=== PATIENT | female | born 1940 | race African-American/Black ===

== ENCOUNTER 2020-06-11 10:37 | Inpatient (IN) | payer OTHER, MEDICARE ==
--- NOTE | 2020-06-11 10:46 | Emergency Department Report ---
Blank Doc - Documentation Documentation: 79- year-old female that presents with abdominal pain with n/v and body aches. This initial assessment/diagnostic orders/clinical plan/treatment(s) is/are subject to change based on patient's health status, clinical progression and re- assessment by fellow clinical providers in the ED. Further treatment and workup at subsequent clinical providers discretion. Patient/guardians urged not to elope from the ED as their condition may be serious if not clinically assessed and managed. Initial orders include: 1- Patient sent to MAIN ED for further evaluation and treatment 2- labs 3- UA
--- NOTE | 2020-06-11 11:34 | XRay Report ---
ABDOMINAL SERIES WITH CHEST X-RAY HISTORY: Nausea and vomiting COMPARISON: None. IMPRESSION: Single view of the chest is within normal limits. Supine and upright views the abdomen de monstrate no evidence for dilated bowel, fluid levels or free air. No pathologic calcifications. The organ shadows are unremarkable. Mild degenerative changes are noted in the lumbar spine. Signer Name: Norman Olivia Jr, MD Signed: 06/11/2020 11:30 AM Workstation Name: [id number]
[2020-06-11 12:04] LABS: Hematocrit 40.8 % (30.3-42.9); Hemoglobin 13.5 gm/dl (10.1-14.3); Mean Corpuscular HGB Conc 33 % (30-34); Mean Corpuscular Volume 90 fl (79-97); Red Blood Count 4.56 M/mm3 (3.65-5.03); Red Cell Distribution Width 13.9 % (13.2-15.2)
[2020-06-11 12:05] LABS: Platelet Count 64 K/mm3 (140-440)
[2020-06-11 12:07] LABS: Albumin 3.2 g/dL (3.9-5); Calcium 9.1 mg/dL (8.4-10.2)
[2020-06-11 12:27] LABS: INR 1.11 (0.87-1.13)
[2020-06-11 12:27] LABS: Bacteria,Urine 1+ /HPF (Negative); Bilirubin,Urine NEG (Negative); Blood,Urine MOD (Negative); Color,Urine Yellow (Yellow); Urobilinogen,Urine < 2.0 mg/dL (<2.0)
[2020-06-11 12:29] LABS: WBC,Urine > 182.0 /HPF (0.0-6.0)
[2020-06-11] MEDS ORDERED: fentaNYL 100 MCG/2 ML INJ IV ONE ×2 (12:40→19:22)
[2020-06-11] MEDS ORDERED: SODIUM CHLORIDE 0.9% 1000 ML 1,000 ML IV ONE ×2 (12:40)
[2020-06-11] MEDS ORDERED: ONDANSETRON 4 MG/2 ML INJ IV ONE (12:40)
--- NOTE | 2020-06-11 12:44 | Emergency Department Report ---
HPI - General Chief Complaint: Upper Respiratory Infection Time Seen by Provider: 06/11/20 10:44 - HPI HPI: Room 40 The patient is a 79-year-old female present with a chief complaint of abdominal pain. The patient states his symptoms began 4 days ago with diffuse abdominal pain is been constant in nature. Patient states she developed chills and swea ting associated with nausea vomiting and diarrhea. Patient denies history of fever but states she has not had an appetite secondary to her symptoms. Patient states today she had a dry cough. Patient denies dysuria or hematuria. Patient currently gives her abdominal pain a score of 5/10 ED Past Medical Hx - Past Medical History Previous Medical History?: No Hx Hypertension: Yes Hx Diabetes: Yes Additional medical history: Hypothyroidism - Surgical History Past Surgical History?: Yes Additional Surgical History: back and neck surgery - Family History Family history: no significant - Social History Smoking Status: Never Smoker Substance Use Type: None ED Review of Systems ROS: Stated complaint: NAUSEA/BODY PAIN/NO APPETITE Other details as noted in HPI Constitutional: denies: fever Respiratory: no symptoms reported Endocrine: no symptoms reported Gastrointestinal: abdominal pain, nausea, vomiting, diarrhea Genitourinary: denies: dysuria, hematuria Physical Exam - Physical Exam Vital Signs: Vital Signs 06/11/20 10:47 Temperature 98.5 F Pulse Rate 95 H Respiratory 24 Rate Blood Pressure 148/78 O2 Sat by Pulse 96 Oximetry Physical Exam: GENERAL: The patient is well-developed well-nourished female lying on stretcher not appearing to be in acute distress. [] HEENT: Normocephalic. Atraumatic. Extraocular motions are intact. Patient has moist mucous membranes. NECK: Supple. Trachea midline CHEST/LUNGS: Clear to auscultation. There is no respiratory distress noted. HEART/CARDIOVASCULAR: Regular. There is no tachycardia. There is no gallop rub or murmur. ABDOMEN: Abdomen is soft, with trace discomfort to palpation in the left upper quadrant and right upper quadrant. Moderate discomfort to palpation in the right lower quadrant and suprapubic region. Patient has normal bowel sounds. There is no abdominal distention. SKIN: There is no rash. There is no edema. There is no diaphoresis. NEURO: The patient is awake, alert, and oriented. The patient is cooperative. The patient has normal speech MUSCULOSKELETAL: There is no evidence of acute injury. ED Course Vital Signs 06/11/20 10:47 Temperature 98.5 F Pulse Rate 95 H Respiratory 24 Rate Blood Pressure 148/78 O2 Sat by Pulse 96 Oximetry ED Medical Decision Making - Lab Data Result diagrams: 06/11/20 11:22 06/11/20 11:09 - Radiology Data Radiology results: report reviewed (CT abdomen pelvis), image reviewed (CT abdomen pelvis) [facility] [address] [place] [address] Cat Scan Report Signed Patient: IFRAH LAUREN MR#: [id number] : 1940 Acct:[id number] Age/Sex: 79 / F ADM Date: 06/11/20 Loc: ED Attending Dr: Ordering Physician: ADELSO LOPEZ MD Date of Service: 06/11/20 Procedure(s): CT abdomen pelvis wo con Accession Number(s): [id number] cc: ADELSO LOPEZ MD CT ABDOMEN AND PELVIS WITHOUT IV CONTRAST INDICATION: Diffuse abdominal pain nvd. COMPARISON: None available. TECHNIQUE: All CT scans at this facility use dose modulation, automated exposure control, iterative reconstruction or weight based dosing, when appropriate, to reduce radiation dose to as low as reasonably achievable. FINDINGS: Lung Bases: No significant abnormality. Skeletal System: No acute abnormality. There is diffuse spondylosis. ABDOMEN: Liver: No significant abnormality. Gallbladder: No significant abnormality. Bile Ducts: No significant abnormality. Pancreas: No significant abnormality. Spleen: No significant abnormality. Adrenals: No significant abnormality. Right Kidney: No significant abnormality. Left Kidney: There is mild left hydroureteronephrosis. No intrarenal stones are seen. There is mild left perinephric stranding. Upper GI tract: No significant abnormality. Lymph Nodes: No significant adenopathy. Aorta: No significant abnormality. Additional Findings: No significant abnor mality. PELVIS: Colon: No acute abnormality. Diverticulosis is noted. Urinary Bladder and Distal Ureters: There is a 6 mm obstructing stone in the very distal left ureter (series 2 image 169). Bladder is unremarkable. Appendix: No significant abnormality. Lymph Nodes: No significant adenopathy. Additional Findings: None. IMPRESSION: 1. 6 mm obstructing distal left ureteral stone with mild left hydroureteronephrosis. No intrarenal stones are seen bilaterally. 2. Incidental findings, as above. Signer Name: Matthew Spencer MD Signed: 06/11/2020 2:45 PM Workstation Name: [id number] Transcribed By: SW Dictated By: Matthew Spencer MD Electronically Authenticated By: Matthew Spencer MD Signed Date/Time: 06/11/201444 DD/ 41 TD/TT: - Differential Diagnosis Small bowel obstruction, gastroenteritis, dehydration, acute renal failure Critical care attestation.: If time is entered above; I have spent that time in minutes in the direct care of this critically ill patient, excluding procedure time. ED Disposition Clinical Impression: Nausea vomiting and diarrhea, Acute kidney injury, Renal colic, Dehydration, UTI (urinary tract infection) Disposition: DC-09 OP ADMIT IP TO THIS HOSP Is pt being admited?: Yes Does the pt Need Aspirin: No Condition: Stable Time of Disposition: 15:03 (Hospitalist paged (Dr Elizondo))
[2020-06-11 14:08] LABS: Band Neutrophils # (Manual) 0.4 K/mm3; Basophils % (Manual) 0 % (0.0-1.8); Eosinophils % (Manual) 0 % (0.0-4.3); Total Cells Counted 100
[2020-06-11 14:09] LABS: Platelet Estimate Consistent w Auto; RBC Morphology Normal
--- NOTE | 2020-06-11 14:50 | Cat Scan Report ---
CT ABDOMEN AND PELVIS WITHOUT IV CONTRAST INDICATION: Diffuse abdominal pain nvd. COMPARISON: None available. TECHNIQUE: All CT scans at this facility use dose modulation, automated exposure control, iterative reconstructi on or weight based dosing, when appropriate, to reduce radiation dose to as low as reasonably achieva ble. FINDINGS: Lung Bases: No significant abnormality. Skeletal System: No acute abnormality. There is diffuse spondylosis. ABDOMEN: Liver: No significant abnormality. Gallbladder: No significant abnormality. Bile Ducts: No significant abnormality. Pancreas: No significant abnormality. Spleen: No significant abnormality. Adrenals: No significant abnormality. Right Kidney: No significant abnormality. Left Kidney: There is mild left hydroureteronephrosis. No intrarenal stones are seen. There is mild l eft perinephric stranding. Upper GI tract: No significant abnormality. Lymph Nodes: No significant adenopathy. Aorta: No significant abnormality. Additional Findings: No significant abnormality. PELVIS: Colon: No acute abnormality. Diverticulosis is noted. Urinary Bladder and Distal Ureters: There is a 6 mm obstructing stone in the very distal left ureter (series 2 image 169). Bladder is unremarkable. Appendix: No significant abnormality. Lymph Nodes: No significant adenopathy. Additional Findings: None. IMPRESSION: 1. 6 mm obstructing distal left ureteral stone with mild left hydroureteronephrosis. No intrarenal s tones are seen bilaterally. 2. Incidental findings, as above. Signer Name: Matthew Spencer MD Signed: 06/11/2020 2:45 PM Workstation Name: [id number]
[2020-06-11] MEDS ORDERED: cefTRIAXone/NS 1 GM/50 ML 1 GM/50 ML BAG IV ONE (15:03)
[2020-06-11] MEDS ORDERED: fentaNYL 100 MCG/2 ML INJ ONE (19:10)
--- NOTE | 2020-06-11 22:13 | History and Physical Report ---
History of Present Illness Date of examination: 06/11/20 Date of admission: 06/11/2020 Chief complaint: Abdominal pain, nausea vomiting diarrhea for 4 days. History of present illness: 79-year-old female with history of hypertension type 2 diabetes and hypothyroidism comes in for abdominal pain nausea vomiting and diarrhea 4 days duration. Patient continues to have nausea vomiting and diarrhea. Demerol vomiting about 4-6 times a day and diarrhea 3-4 times a day. No exposure to coronavirus. No syncope no seizures. No chest pain. - Past Medical History Previous Medical History?: No --Hypertension: Yes --Diabetes: Yes --Hypothyroidism - Surgical History Past Surgical History?: Yes Additional Surgical History: back and neck surgery - Family History Family history: no significant - Social History Smoking Status: Never Smoker Substance Use Type: None Review of Systems ROS: Stated complaint: NAUSEA/BODY PAIN/NO APPETITE Other details as noted in HPI Constitutional: denies: fever Respiratory: no symptoms reported Endocrine: no symptoms reported Gastrointestinal: abdominal pain, nausea, vomiting, diarrhea Genitourinary: denies: dysuria, hematuria Medications and Allergies Allergies Allergy/AdvReac Type Severity Reaction Status Date / Time No Known Allergies Allergy Unverified 06/11/20 10:48 Exam - Constitutional Vitals: Temp Pulse Resp BP Pulse Ox 100.5 F H 150 H 18 192/93 95 06/11/20 18:58 06/11/20 19:06 06/11/20 20:23 06/11/20 18:58 06/11/20 18:58 General appearance: Present: no acute distress, well-nourished - EENT Eyes: Present: PERRL ENT: hearing intact, clear oral mucosa - Neck Neck: Present: supple, normal ROM - Respiratory Respiratory effort: normal Respiratory: bilateral: CTA - Cardiovascular Heart rate: 78 Rhythm: regular Heart Sounds: Present: S1 & S2. Absent: rub, click - Extremities Extremities: pulses symmetrical, No edema Peripheral Pulses: within normal limits - Abdominal General gastrointestinal: Present: soft, non-tender, non-distended, normal bowel sounds Female genitourinary: Present: normal - Integumentary Integumentary: Present: clear, warm, dry - Musculoskeletal Musculoskeletal: gait normal, strength equal bilaterally - Psychiatric Psychiatric: appropriate mood/affect, intact judgment & insight - Neurologic Neurologic: CNII-XII intact, moves all extremities - Allied Health Allied health notes reviewed: nursing, case management HEART Score - HEART Score History: Moderately suspicious Age: > 65 Troponin: Troponin T < 0.010 ng/mL (0.00-0.029) 06/11/20 11:09 Troponin: 1-3x normal limit - Critical Actions Critical Actions: 4-6 pts:12-16.6% risk of adverse cardiac event. Should be admitted Results - Labs CBC & Chem 7: 06/11/20 11:22 06/11/20 11:09 Labs: Laboratory Last Values WBC 8.9 K/mm3 (4.5-11.0) 06/11/20 11:22 RBC 4.56 M/mm3 (3.65-5.03) 06/11/20 11:22 Hgb 13.5 gm/dl (10.1-14.3) 06/11/20 11:22 Hct 40.8 % (30.3-42.9) 06/11/20 11:22 MCV 90 fl (79-97) 06/11/20 11:22 MCH 30 pg (28-32) 06/11/20 11:22 MCHC 33 % (30-34) 06/11/20 11:22 RDW 13.9 % (13.2-15.2) 06/11/20 11:22 Plt Count 64 K/mm3 (140-440) L 06/11/20 11:22 Add Manual Diff Complete 06/11/20 11:22 Total Counted 100 06/11/20 11:22 Seg Neuts % (Manual) 88.0 % (40.0-70.0) H 06/11/20 11:22 Band Neutrophils % 5.0 % 06/11/20 11:22 Lymphocytes % (Manual) 4.0 % (13.4-35.0) L 06/11/20 11:22 Reactive Lymphs % (Man) 0 % 06/11/20 11:22 Monocytes % (Manual) 3.0 % (0.0-7.3) 06/11/20 11:22 Eosinophils % (Manual) 0 % (0.0-4.3) 06/11/20 11:22 Basophils % (Manual) 0 % (0.0-1.8) 06/11/20 11:22 Metamyelocytes % 0 % 06/11/20 11:22 Myelocytes % 0 % 06/11/20 11:22 Promyelocytes % 0 % 06/11/20 11:22 Blast Cells % 0 % 06/11/20 11:22 Nucleated RBC % Not Reportable 06/11/20 11:22 Seg Neutrophils # Man 7.8 K/mm3 (1.8-7.7) H 06/11/20 11:22 Band Neutrophils # 0.4 K/mm3 06/11/20 11:22 Lymphocytes # (Manual) 0.4 K/mm3 (1.2-5.4) L 06/11/20 11:22 Abs React Lymphs (Man) 0.0 K/mm3 06/11/20 11:22 Monocytes # (Manual) 0.3 K/mm3 (0.0-0.8) 06/11/20 11:22 Eosinophils # (Manual) 0.0 K/mm3 (0.0-0.4) 06/11/20 11:22 Basophils # (Manual) 0.0 K/mm3 (0.0-0.1) 06/11/20 11:22 Metamyelocytes # 0.0 K/mm3 06/11/20 11:22 Myelocytes # 0.0 K/mm3 06/11/20 11:22 Promyelocytes # 0.0 K/mm3 06/11/20 11:22 Blast Cells # 0.0 K/mm3 06/11/20 11:22 WBC Morphology Not Reportable 06/11/20 11:22 Hypersegmented Neuts Not Reportable 06/11/20 11:22 Hyposegmented Neuts Not Reportable 06/11/20 11:22 Hypogranular Neuts Not Reportable 06/11/20 11:22 Smudge Cells Not Reportable 06/11/20 11:22 Toxic Granulation Not Reportable 06/11/20 11:22 Toxic Vacuolation Not Reportable 06/11/20 11:22 Dohle Bodies Not Reportable 06/11/20 11:22 Pelger-Huet Anomaly Not Reportable 06/11/20 11:22 Vadim Rods Not Reportable 06/11/20 11:22 Platelet Estimate Consistent w auto 06/11/20 11:22 Clumped Platelets Not Reportable 06/11/20 11:22 Plt Clumps, EDTA Not Reportable 06/11/20 11:22 Large Platelets Not Reportable 06/11/20 11:22 Giant Platelets Not Reportable 06/11/20 11:22 Platelet Satelliting Not Reportable 06/11/20 11:22 Plt Morphology Comment Not Reportable 06/11/20 11:22 RBC Morphology Normal 06/11/20 11:22 Dimorphic RBCs Not Reportable 06/11/20 11:22 Polychromasia Not Reportable 06/11/20 11:22 Hypochromasia Not Reportable 06/11/20 11:22 Poikilocytosis Not Reportable 06/11/20 11:22 Anisocytosis Not Reportable 06/11/20 11:22 Microcytosis Not Reportable 06/11/20 11:22 Macrocytosis Not Reportable 06/11/20 11:22 Spherocytes Not Reportable 06/11/20 11:22 Pappenheimer Bodies Not Reportable 06/11/20 11:22 Sickle Cells Not Reportable 06/11/20 11:22 Target Cells Not Reportable 06/11/20 11:22 Tear Drop Cells Not Reportable 06/11/20 11:22 Ovalocytes Not Reportable 06/11/20 11:22 Helmet Cells Not Reportable 06/11/20 11:22 [place] Bodies Not Reportable 06/11/20 11:22 [place] Rings Not Reportable 06/11/20 11:22 [place] Cells Not Reportable 06/11/20 11:22 Bite Cells Not Reportable 06/11/20 11:22 Crenated Cell Not Reportable 06/11/20 11:22 Elliptocytes Not Reportable 06/11/20 11:22 Acanthocytes (Spur) Not Reportable 06/11/20 11:22 Rouleaux Not Reportable 06/11/20 11:22 Hemoglobin C Crystals Not Reportable 06/11/20 11:22 Schistocytes Not Reportable 06/11/20 11:22 Malaria parasites Not Reportable 06/11/20 11:22 [place] Bodies Not Reportable 06/11/20 11:22 Hem Pathologist Commnt No 06/11/20 11:22 PT 14.4 Sec. (12.2-14.9) 06/11/20 11:09 INR 1.11 (0.87-1.13) 06/11/20 11:09 APTT 39.0 Sec. (24.2-36.6) H 06/11/20 11:09 Sodium 132 mmol/L (137-145) L 06/11/20 11:09 Potassium 3.7 mmol/L (3.6-5.0) 06/11/20 11:09 Chloride 96.8 mmol/L (98-107) L 06/11/20 11:09 Carbon Dioxide 18 mmol/L (22-30) L 06/11/20 11:09 Anion Gap 21 mmol/L 06/11/20 11:09 BUN 71 mg/dL (7-17) H 06/11/20 11:09 Creatinine 3.7 mg/dL (0.6-1.2) H 06/11/20 11:09 Estimated GFR 12 ml/min 06/11/20 11:09 BUN/Creatinine Ratio 19 % 06/11/20 11:09 Glucose 93 mg/dL (65-100) 06/11/20 11:09 Calcium 9.1 mg/dL (8.4-10.2) 06/11/20 11:09 Total Bilirubin 1.00 mg/dL (0.1-1.2) 06/11/20 11:09 AST 19 units/L (5-40) 06/11/20 11:09 ALT 13 units/L (7-56) 06/11/20 11:09 Alkaline Phosphatase 95 units/L (35-129) 06/11/20 11:09 Troponin T < 0.010 ng/mL (0.00-0.029) 06/11/20 11:09 Total Protein 7.1 g/dL (6.3-8.2) 06/11/20 11:09 Albumin 3.2 g/dL (3.9-5) L 06/11/20 11:09 Albumin/Globulin Ratio 0.8 % 06/11/20 11:09 Lipase 20 units/L (13-60) 06/11/20 11:09 Urine Color Yellow (Yellow) 06/11/20 11:53 Urine Turbidity Cloudy (Clear) 06/11/20 11:53 Urine pH 5.0 (5.0-7.0) 06/11/20 11:53 Ur Specific [place] 1.014 (1.003-1.030) 06/11/20 11:53 Urine Protein 100 mg/dl mg/dL (Negative) 06/11/20 11:53 Urine Glucose (UA) Neg mg/dL (Negative) 06/11/20 11:53 Urine Ketones Tr mg/dL (Negative) 06/11/20 11:53 Urine Blood Mod (Negative) 06/11/20 11:53 Urine Nitrite Pos (Negative) 06/11/20 11:53 Urine Bilirubin Neg (Negative) 06/11/20 11:53 Urine Urobilinogen < 2.0 mg/dL (<2.0) 06/11/20 11:53 Ur Leukocyte Esterase Lg (Negative) 06/11/20 11:53 Urine WBC (Auto) > 182.0 /HPF (0.0-6.0) H 06/11/20 11:53 Urine RBC (Auto) 17.0 /HPF (0.0-6.0) 06/11/20 11:53 U Epithel Cells (Auto) 4.0 /HPF (0-13.0) 06/11/20 11:53 Urine Bacteria (Auto) 1+ /HPF (Negative) 06/11/20 11:53 Urine WBC Clumps 2+ /HPF 06/11/20 11:53 Short CBC 06/11/20 Range/Units 11:22 WBC 8.9 (4.5-11.0) K/mm3 Hgb 13.5 (10.1-14.3) gm/dl Hct 40.8 (30.3-42.9) % Plt Count 64 L (140-440) K/mm3 BMP 06/11/20 11:09 Sodium 132 L Potassium 3.7 Chloride 96.8 L Carbon Dioxide 18 L BUN 71 H Creatinine 3.7 H Glucose 93 Calcium 9.1 Cardiac Enzymes 06/11/20 Range/Units 11:09 Troponin T < 0.010 (0.00-0.029) ng/mL Liver Function 06/11/20 Range/Units 11:09 Total Bilirubin 1.00 (0.1-1.2) mg/dL AST 19 (5-40) units/L ALT 13 (7-56) units/L Alkaline Phosphatase 95 (35-129) units/L Albumin 3.2 L (3.9-5) g/dL Urine 06/11/20 Range/Units 11:53 Urine Color Yellow (Yellow) Urine pH 5.0 (5.0-7.0) Ur Specific [place] 1.014 (1.003-1.030) Urine Protein 100 mg/dl (Negative) mg/dL Urine Glucose (UA) Neg (Negative) mg/dL Short CBC 06/11/20 Range/Units 11:22 WBC 8.9 (4.5-11.0) K/mm3 Hgb 13.5 (10.1-14.3) gm/dl Hct 40.8 (30.3-42.9) % Plt Count 64 L (140-440) K/mm3 BMP 06/11/20 11:09 Sodium 132 L Potassium 3.7 Chloride 96.8 L Carbon Dioxide 18 L BUN 71 H Creatinine 3.7 H Glucose 93 Calcium 9.1 Cardiac Enzymes 06/11/20 Range/Units 11:09 Troponin T < 0.010 (0.00-0.029) ng/mL Liver Function 06/11/20 Range/Units 11:09 Total Bilirubin 1.00 (0.1-1.2) mg/dL AST 19 (5-40) units/L ALT 13 (7-56) units/L Alkaline Phosphatase 95 (35-129) units/L Albumin 3.2 L (3.9-5) g/dL Urine 06/11/20 Range/Units 11:53 Urine Color Yellow (Yellow) Urine pH 5.0 (5.0-7.0) Ur Specific [place] 1.014 (1.003-1.030) Urine Protein 100 mg/dl (Negative) mg/dL Urine Glucose (UA) Neg (Negative) mg/dL - Imaging and Cardiology Imaging and Cardiology: CT abdomen 6 mm obstructing distal left ureteral stone with mild left hydroureteral nephrosis. No intrarenal stones are seen bilaterally. Incidental findings as above. Chest x-ray No acute findings Hernandez/IV: IV Catheter Type [Right INT / Saline Lock Antecubital] Assessment and Plan Advance Directives: Yes (Full code) VTE prophylaxis?: Chemical Plan of care discussed with patient/family: Yes - Patient Problems (1) Acute kidney injury Current Visit: Yes Status: Acute Plan to address problem: Patient has been volume repleted ATN IV fluids Possible underlying chronic kidney disease Nephrology consult requested (2) Acute gastroenteritis Current Visit: Yes Status: Acute Plan to address problem: Symptomatic treatment IV fluids (3) Dehydration Current Visit: Yes Status: Acute Plan to address problem: IV fluids for now (4) Left ureteral stone Current Visit: Yes Status: Acute Plan to address problem: Left ureteral stone with moderate hydronephrosis Had urology consult requested (5) Hypertension Current Visit: Yes Status: Chronic Qualifiers: Hypertension type: essential hypertension Qualified Code(s): I10 - Essential (primary) hypertension Plan to address problem: Continue antihypertensives and adjust medications (6) Renal colic Current Visit: Yes Status: Acute Plan to address problem: Secondary to ureteral stone IV Toradol and IV Dilaudid as needed (7) T2DM (type 2 diabetes mellitus) Current Visit: Yes Status: Chronic Qualifiers: 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
[2020-06-11] MEDS ORDERED: ACETAMINOPHEN 325 MG TAB PO PRN (22:25)
[2020-06-11] MEDS ORDERED: oxyCODONE /ACETAMINOPHEN 5-325MG TAB PO PRN (22:25)
[2020-06-11] MEDS ORDERED: ONDANSETRON 4 MG/2 ML INJ IV PRN (22:25)
[2020-06-11] MEDS ORDERED: HYDROmorphone 1 MG/1 ML INJ IV PRN (22:25)
[2020-06-11] MEDS ORDERED: KETOROLAC 30 MG/1 ML INJ IV PRN (22:30)
[2020-06-11] MEDS: SODIUM CHLORIDE 0.9% 1000 ML 1,000 ML IV SCH (22:39)
[2020-06-11] MEDS: HEPARIN 5,000 UNIT/1 ML VIAL SUB-Q SCH (22:40)
[2020-06-12] MEDS ORDERED: FAMOTIDINE 20 MG/2 ML INJ IV SCH (10:00)
[2020-06-12] MEDS ORDERED: FAMOTIDINE 20 MG/2 ML INJ IV ONE (17:50)
[2020-06-12] MEDS ORDERED: HEPARIN 5,000 UNIT/1 ML VIAL ONE (17:50)
[2020-06-12] MEDS ORDERED: SODIUM CHLORIDE 0.9% 1000 ML IV SOLN ONE (17:50)
[2020-06-12] MEDS ORDERED: cefTRIAXone/NS 1 GM/50 ML IVPB IV ONE (17:50)
[2020-06-12] MEDS: cefTRIAXone/NS 1 GM/50 ML 1 GM/50 ML BAG IV SCH (17:54)
[2020-06-12] MEDS: HEPARIN 5,000 UNIT/1 ML VIAL SUB-Q SCH ×3 (17:55→23:03)
[2020-06-12] MEDS: SODIUM CHLORIDE 0.9% 1000 ML 1,000 ML IV SCH (17:55)
[2020-06-12] MEDS: FAMOTIDINE 20 MG/2 ML INJ IV SCH (17:56)
[2020-06-12] MEDS ORDERED: MORPHINE 2 MG/1 ML INJ IV PRN (18:59)
[2020-06-13] MEDS: HEPARIN 5,000 UNIT/1 ML VIAL SUB-Q SCH ×3 (06:53→21:28)
[2020-06-13 08:31] LABS: Eosinophils # (Auto) 0.1 K/mm3 (0.0-0.4); Eosinophils % (Auto) 0.7 % (0.0-4.3); Monocytes # (Auto) 0.8 K/mm3 (0.0-0.8); Monocytes % (Auto) 7.5 % (0.0-7.3)
[2020-06-13 08:52] LABS: Albumin 2.3 g/dL (3.9-5); Calcium 8.1 mg/dL (8.4-10.2)
[2020-06-13 09:12] LABS: Hemoglobin 12.1 gm/dl (10.1-14.3); Mean Corpuscular HGB Conc 34 % (30-34); Mean Corpuscular Volume 89 fl (79-97); Platelet Count 64 K/mm3 (140-440); Red Blood Count 4.03 M/mm3 (3.65-5.03); Red Cell Distribution Width 13.5 % (13.2-15.2)
[2020-06-13 09:13] LABS: Basophils % (Auto) 0.1 % (0.0-1.8); Lymphocytes # (Auto) 0.6 K/mm3 (1.2-5.4); Lymphocytes % (Auto) 5.8 % (13.4-35.0)
--- NOTE | 2020-06-13 09:32 | Progress Note ---
Assessment and Plan Assessment and plan: Acute kidney injury. Continue IV fluid hydration follow-up BMP. Patient likely with underlying chronic kidney disease. Nephrology consultation. Sepsis. Etiology secondary to UTI +/-gastroenteritis. Follow-up blood and urine cultures. Acute gastroenteritis. Continue symptomatic treatment. Consider IV antibiotics. Continue IV fluid hydration. Left ureteral stone with moderate hydronephrosis. Urology consultation pending. UTI. Continue IV antibiotics and follow-up urine cultures. Hypertension. Continue antihypertensive medications. Diabetes mellitus type 2. Continue Accu-Cheks and sliding scale insulin. DVT prophylaxis. Continue heparin. History Interval history: No new issues overnight. Hospitalist Physical - Constitutional Vitals: Temp Pulse Resp BP Pulse Ox 97.7 F 80 18 136/64 97 06/13/20 07:59 06/13/20 07:59 06/13/20 07:59 06/13/20 07:59 06/13/20 07:59 General appearance: Present: no acute distress, well-nourished - EENT Eyes: Present: PERRL, EOM intact ENT: hearing intact, clear oral mucosa, dentition normal - Neck Neck: Present: supple, normal ROM - Respiratory Respiratory effort: normal Respiratory: bilateral: CTA - Cardiovascular Rhythm: regular Heart Sounds: Present: S1 & S2. Absent: gallop, rub - Extremities Extremities: no ischemia, No edema, Full ROM - Abdominal General gastrointestinal: soft, non-tender, non-distended, normal bowel sounds - Integumentary Integumentary: Present: clear, warm, dry - Neurologic Neurologic: CNII-XII intact, moves all extremities HEART Score - HEART Score Age: > 65 Troponin: Troponin T < 0.010 ng/mL (0.00-0.029) 06/11/20 11:09 Troponin: 1-3x normal limit - Critical Actions Critical Actions: 4-6 pts:12-16.6% risk of adverse cardiac event. Should be admitted Results - Labs CBC & Chem 7: 06/13/20 06:29 06/13/20 06:29 Labs: Laboratory Last Values WBC 11.0 K/mm3 (4.5-11.0) 06/13/20 06:29 RBC 4.03 M/mm3 (3.65-5.03) 06/13/20 06:29 Hgb 12.1 gm/dl (10.1-14.3) 06/13/20 06: Hct 36.0 % (30.3-42.9) 06/13/20 06: MCV 89 fl (79-97) 06/13/20 06: MCH 30 pg (28-32) 06/13/20 06: MCHC 34 % (30-34) 06/13/20 06: RDW 13.5 % (13.2-15.2) 06/13/20 06: Plt Count 64 K/mm3 (140-440) L 06/13/20 06:29 Lymph % (Auto) 5.8 % (13.4-35.0) L 06/13/20 06: Saunders % (Auto) 7.5 % (0.0-7.3) H 06/13/20 06: Eos % (Auto) 0.7 % (0.0-4.3) 06/13/20 06: Baso % (Auto) 0.1 % (0.0-1.8) 06/13/20 06: Lymph # (Auto) 0.6 K/mm3 (1.2-5.4) L 06/13/20 06: Saunders # (Auto) 0.8 K/mm3 (0.0-0.8) 06/13/20 06: Eos # (Auto) 0.1 K/mm3 (0.0-0.4) 06/13/20 06: Baso # (Auto) 0.0 K/mm3 (0.0-0.1) 06/13/20 06: Add Manual Diff Complete 06/13/20 06:29 Total Counted 100 06/11/20 11:22 Seg Neutrophils % 85.9 % (40.0-70.0) H 06/13/20 06:29 Seg Neuts % (Manual) 88.0 % (40.0-70.0) H 06/11/20 11:22 Band Neutrophils % 5.0 % 06/11/20 11:22 Lymphocytes % (Manual) 4.0 % (13.4-35.0) L 06/11/20 11:22 Reactive Lymphs % (Man) 0 % 06/11/20 11:22 Monocytes % (Manual) 3.0 % (0.0-7.3) 06/11/20 11:22 Eosinophils % (Manual) 0 % (0.0-4.3) 06/11/20 11:22 Basophils % (Manual) 0 % (0.0-1.8) 06/11/20 11:22 Metamyelocytes % 0 % 06/11/20 11:22 Myelocytes % 0 % 06/11/20 11:22 Promyelocytes % 0 % 06/11/20 11:22 Blast Cells % 0 % 06/11/20 11:22 Nucleated RBC % Not Reportable 06/11/20 11:22 Seg Neutrophils # 9.5 K/mm3 (1.8-7.7) H 06/13/20 06:29 Seg Neutrophils # Man 7.8 K/mm3 (1.8-7.7) H 06/11/20 11:22 Band Neutrophils # 0.4 K/mm3 06/11/20 11:22 Lymphocytes # (Manual) 0.4 K/mm3 (1.2-5.4) L 06/11/20 11:22 Abs React Lymphs (Man) 0.0 K/mm3 06/11/20 11:22 Monocytes # (Manual) 0.3 K/mm3 (0.0-0.8) 06/11/20 11:22 Eosinophils # (Manual) 0.0 K/mm3 (0.0-0.4) 06/11/20 11:22 Basophils # (Manual) 0.0 K/mm3 (0.0-0.1) 06/11/20 11:22 Metamyelocytes # 0.0 K/mm3 06/11/20 11:22 Myelocytes # 0.0 K/mm3 06/11/20 11:22 Promyelocytes # 0.0 K/mm3 06/11/20 11:22 Blast Cells # 0.0 K/mm3 06/11/20 11:22 WBC Morphology Not Reportable 06/11/20 11:22 Hypersegmented Neuts Not Reportable 06/11/20 11:22 Hyposegmented Neuts Not Reportable 06/11/20 11:22 Hypogranular Neuts Not Reportable 06/11/20 11:22 Smudge Cells Not Reportable 06/11/20 11:22 Toxic Granulation Not Reportable 06/11/20 11:22 Toxic Vacuolation Not Reportable 06/11/20 11:22 Dohle Bodies Not Reportable 06/11/20 11:22 Pelger-Huet Anomaly Not Reportable 06/11/20 11:22 Vadim Rods Not Reportable 06/11/20 11:22 Platelet Estimate Consistent w auto 06/11/20 11:22 Clumped Platelets Not Reportable 06/11/20 11:22 Plt Clumps, EDTA Not Reportable 06/11/20 11:22 Large Platelets Not Reportable 06/11/20 11:22 Giant Platelets Not Reportable 06/11/20 11:22 Platelet Satelliting Not Reportable 06/11/20 11:22 Plt Morphology Comment Not Reportable 06/11/20 11:22 RBC Morphology Normal 06/11/20 11:22 Dimorphic RBCs Not Reportable 06/11/20 11:22 Polychromasia Not Reportable 06/11/20 11:22 Hypochromasia Not Reportable 06/11/20 11:22 Poikilocytosis Not Reportable 06/11/20 11:22 Anisocytosis Not Reportable 06/11/20 11:22 Microcytosis Not Reportable 06/11/20 11:22 Macrocytosis Not Reportable 06/11/20 11:22 Spherocytes Not Reportable 06/11/20 11:22 Pappenheimer Bodies Not Reportable 06/11/20 11:22 Sickle Cells Not Reportable 06/11/20 11:22 Target Cells Not Reportable 06/11/20 11:22 Tear Drop Cells Not Reportable 06/11/20 11:22 Ovalocytes Not Reportable 06/11/20 11:22 Helmet Cells Not Reportable 06/11/20 11:22 [place] Bodies Not Reportable 06/11/20 11:22 [place] Rings Not Reportable 06/11/20 11:22 Cropsey Cells Not Reportable 06/11/20 11:22 Bite Cells Not Reportable 06/11/20 11:22 Crenated Cell Not Reportable 06/11/20 11:22 Elliptocytes Not Reportable 06/11/20 11:22 Acanthocytes (Spur) Not Reportable 06/11/20 11:22 Rouleaux Not Reportable 06/11/20 11:22 Hemoglobin C Crystals Not Reportable 06/11/20 11:22 Schistocytes Not Reportable 06/11/20 11:22 Malaria parasites Not Reportable 06/11/20 11:22 Skyler Bodies Not Reportable 06/11/20 11:22 Hem Pathologist Commnt No 06/11/20 11:22 PT 14.4 Sec. (12.2-14.9) 06/11/20 11:09 INR 1.11 (0.87-1.13) 06/11/20 11:09 APTT 39.0 Sec. (24.2-36.6) H 06/11/20 11:09 Sodium 134 mmol/L (137-145) L 06/13/20 06:29 Potassium 3.6 mmol/L (3.6-5.0) 06/13/20 06:29 Chloride 104.7 mmol/L (98-107) 06/13/20 06:29 Carbon Dioxide 16 mmol/L (22-30) L 06/13/20 06:29 Anion Gap 17 mmol/L 06/13/20 06:29 BUN 56 mg/dL (7-17) H 06/13/20 06:29 Creatinine 2.6 mg/dL (0.6-1.2) H 06/13/20 06:29 Estimated GFR 18 ml/min 06/13/20 06:29 BUN/Creatinine Ratio 22 % 06/13/20 06:29 Glucose 106 mg/dL (65-100) H 06/13/20 06:29 Hemoglobin A1c 6.0 % (4-6) 06/11/20 11:22 Calcium 8.1 mg/dL (8.4-10.2) L 06/13/20 06:29 Total Bilirubin 0.80 mg/dL (0.1-1.2) 06/13/20 06:29 AST 19 units/L (5-40) 06/13/20 06:29 ALT 11 units/L (7-56) 06/13/20 06:29 Alkaline Phosphatase 79 units/L (35-129) 06/13/20 06:29 Troponin T < 0.010 ng/mL (0.00-0.029) 06/11/20 11:09 Total Protein 5.6 g/dL (6.3-8.2) L D 06/13/20 06:29 Albumin 2.3 g/dL (3.9-5) L 06/13/20 06:29 Albumin/Globulin Ratio 0.7 % 06/13/20 06:29 Lipase 20 units/L (13-60) 06/11/20 11:09 Urine Color Yellow (Yellow) 06/11/20 11:53 Urine Turbidity Cloudy (Clear) 06/11/20 11:53 Urine pH 5.0 (5.0-7.0) 06/11/20 11:53 Ur Specific [place] 1.014 (1.003-1.030) 06/11/20 11:53 Urine Protein 100 mg/dl mg/dL (Negative) 06/11/20 11:53 Urine Glucose (UA) Neg mg/dL (Negative) 06/11/20 11:53 Urine Ketones Tr mg/dL (Negative) 06/11/20 11:53 Urine Blood Mod (Negative) 06/11/20 11:53 Urine Nitrite Pos (Negative) 06/11/20 11:53 Urine Bilirubin Neg (Negative) 06/11/20 11:53 Urine Urobilinogen < 2.0 mg/dL (<2.0) 06/11/20 11:53 Ur Leukocyte Esterase Lg (Negative) 06/11/20 11:53 Urine WBC (Auto) > 182.0 /HPF (0.0-6.0) H 06/11/20 11:53 Urine RBC (Auto) 17.0 /HPF (0.0-6.0) 06/11/20 11:53 U Epithel Cells (Auto) 4.0 /HPF (0-13.0) 06/11/20 11:53 Urine Bacteria (Auto) 1+ /HPF (Negative) 06/11/20 11:53 Urine WBC Clumps 2+ /HPF 06/11/20 11:53 Hernandez/IV: IV Catheter Type [Right INT / Saline Lock Antecubital] Active Medications - Current Medications Current Medications: Generic Name Dose Route Start Last Admin Trade Name Freq PRN Reason Stop Dose Admin Acetaminophen 650 mg 06/11/20 22:25 Tylenol PO Q4H PRN Pain MILD(1-3)/Fever >100.5/CHU Famotidine 20 mg 06/12/20 10:00 06/12/20 17:56 Pepcid IV 20 mg DAILY KENNETH Administration Heparin Sodium (Porcine) 5,000 unit 06/11/20 22:30 06/13/20 06:53 Heparin SUB-Q 5,000 unit Q8HR KENNETH Administration Hydromorphone HCl 0.5 mg 06/11/20 22:25 Dilaudid IV Q3H PRN Pain , Severe (7-10) Sodium Chloride 1,000 mls @ 125 mls/hr 06/11/20 22:30 06/12/20 17:55 Nacl 0.9% 1000 Ml IV 125 mls/hr DIRECT KENNETH Administration Ceftriaxone Sodium 1 gm in 50 mls @ 100 mls/hr 06/12/20 10:00 06/12/20 17:54 Rocephin/Ns 1 Gm/50 Ml IV 100 mls/hr Q24HR KENNETH Administration Protocol Morphine Sulfate 1 mg 06/12/20 18:59 Morphine IV Q4H PRN Pain, Moderate (4-6) Ondansetron HCl 4 mg 06/11/20 22:25 Zofran IV Q8H PRN Nausea And Vomiting Oxycodone/Acetaminophen 1 tab 06/11/20 22:25 Percocet 5/325 PO Q6H PRN Pain, Moderate (4-6) Sodium Chloride 10 ml 06/12/20 10:00 06/12/20 17:56 Sodium Chloride Flush Syringe 10 Ml IV 10 ml BID KENNETH Administration Sodium Chloride 10 ml 06/11/20 22:25 Sodium Chloride Flush Syringe 10 Ml IV PRN PRN LINE FLUSH
--- NOTE | 2020-06-13 11:04 | Consultation ---
History of Present Illness - Reason for Consult Consult date: 06/13/20 acute renal failure - History of Present Illness The patient is a 79 YO [place]yanese female with history significant for H ypertension, Type 2 diabetes, HLD and Hypothyroidism who presented to [facility] ED with c/o abdominal pain, nausea, vomiting and diarrhea of 4 days duration. Patient vomited about 4-6 times a day and diarrhea 3-4 times a day. Stools are non-bloody. No known exposure to coronavirus. Patient denies fever, chills, dysuria, hematuria, dizziness, syncope, sob or chest pain. Her symptoms are much better now. Labs significant for Creat 3.7, BUN 31, Bicarb 18 and Sodium 132. Nephrology was consulted for further evaluation. Past History Past Medical History: diabetes, hypertension, hyperlipidemia, hypothyroidism Medications and Allergies Allergies Allergy/AdvReac Type Severity Reaction Status Date / Time No Known Allergies Allergy Unverified 06/11/20 10:48 Home Medications Medication Instructions Recorded Confirmed Last Taken Type Fenofibrate 160 mg PO DAILY 06/13/20 06/13/20 Unknown History Levothyroxine [Synthroid] 75 mcg PO QAM 06/13/20 06/13/20 Unknown History Triamter/Hctz 37.5-25 mg 1 tab PO DAILY 06/13/20 06/13/20 Unknown History metFORMIN XR [Glucophage XR] 500 mg PO QDAY 06/13/20 06/13/20 Unknown History Active Meds: Active Medications Acetaminophen (Tylenol) 650 mg PO Q4H PRN PRN Reason: Pain MILD(1-3)/Fever >100.5/CHU Famotidine (Pepcid) 20 mg IV DAILY [facility] Last Admin: 06/12/20 17:56 Dose: 20 mg Documented by: Heparin Sodium (Porcine) (Heparin) 5,000 unit SUB-Q Q8HR KENNETH Last Admin: 06/13/20 06:53 Dose: 5,000 unit Documented by: Hydromorphone HCl (Dilaudid) 0.5 mg IV Q3H PRN PRN Reason: Pain , Severe (7-10) Sodium Chloride (Nacl 0.9% 1000 Ml) 1,000 mls @ 125 mls/hr IV DIRECT KENNETH Last Admin: 06/12/20 17:55 Dose: 125 mls/hr Documented by: Ceftriaxone Sodium (Rocephin/Ns 1 Gm/50 Ml) 1 gm in 50 mls @ 100 mls/hr IV Q24HR [facility]; Protocol Last Admin: 06/12/20 17:54 Dose: 100 mls/hr Documented by: Morphine Sulfate (Morphine) 1 mg IV Q4H PRN PRN Reason: Pain, Moderate (4-6) Ondansetron HCl (Zofran) 4 mg IV Q8H PRN PRN Reason: Nausea And Vomiting Oxycodone/Acetaminophen (Percocet 5/325) 1 tab PO Q6H PRN PRN Reason: Pain, Moderate (4-6) Sodium Chloride (Sodium Chloride Flush Syringe 10 Ml) 10 ml IV BID [facility] Last Admin: 06/12/20 17:56 Dose: 10 ml Documented by: Sodium Chloride (Sodium Chloride Flush Syringe 10 Ml) 10 ml IV PRN PRN PRN Reason: LINE FLUSH Review of Systems Constitutional: no weight loss, no weight gain, no fever, no chills, no anorexia, no weakness Breasts: deferred Cardiovascular: high blood pressure, no chest pain, no orthopnea, no edema, no syncope, no lightheadedness, no shortness of breath, no leg edema Respiratory: no cough, no shortness of breath Gastrointestinal: abdominal pain, nausea, vomiting, diarrhea, no constipation, no hematemesis, no melena Genitourinary Female: no dysuria, no hematuria Rectal: no bleeding Integumentary: no rash, no sores, no wounds, no jaundice Neurological: no seizures, no syncope, no aphasia, no change in speech, no change in mentation, no confusion Exam - Vital Signs Vital signs: Vital Signs Temp Pulse Resp BP Pulse Ox 98.5 F 95 H 24 148/78 96 06/11/20 10:47 06/11/20 10:47 06/11/20 10:47 06/11/20 10:47 06/11/20 10:47 Results - Lab Results 06/13/20 06:29 06/13/20 06:29 Most recent lab results Calcium 8.1 mg/dL (8.4-10.2) L 06/13/20 06:29 Assessment and Plan 1. Acute kidney injury: Vasomotor nephropathy in the setting of volume depletion. CT abdomen showed L ureteral stone with L hydroureteronephrosis. Urine studies ordered. Continue IV fluids. Monitor renal function. Creatinine level is improving. Avoid nephrotoxic agents. Meds dosage based on GFR. 2. FEN: Hyponatremia, 2/2 volume depletion, improving, monitor. Anion-gap Metabolic acidosis, improving, monitor. Monitor lytes. 3. Sepsis: Etiology secondary to UTI +/-gastroenteritis. Follow-up blood and urine cultures. 4. Acute gastroenteritis: Continue symptomatic treatment. 5. Left ureteral stone with hydronephrosis: Cysto planned for 06/14. Followed by Urology. 6. UTI: Continue IV antibiotics and follow-up urine cultures. 7. DM type 2: Accuchecks. 8. Hypertension: Monitor BP and resume home meds as appropriate. Subjective: Patient was seen and examined at the bedside. - General Appearance General appearance: well-developed, well-nourished, appears stated age, no distress HEENT: ATNC, MOON, hearing intact, vision intact Neck: supple Respiratory: ctab Cardiology: regular, S1S2, no murmur Gastrointestinal: normoactive bowel sounds, no tenderness, not distended Integumentary: no obvious rash Neurologic: no asterixis, alert and oriented x3, able to move extremities Ext: no edema noted Psychiatric: cooperative
[2020-06-13] MEDS: FAMOTIDINE 20 MG/2 ML INJ IV SCH (11:26)
[2020-06-13] MEDS: cefTRIAXone/NS 1 GM/50 ML 1 GM/50 ML BAG IV SCH (11:26)
--- NOTE | 2020-06-13 11:27 | Progress Note ---
Assessment and Plan mildLcvat rec cysto make npo all discussed informed consent obtained Subjective Date of service: 06/13/20 Principal diagnosis: ureteral stone Objective - Constitutional Vitals: Vital Signs - 12hr 06/13/20 06/13/20 06/13/20 00:18 01:45 05:15 Temperature 97.5 F L 97.4 F L Pulse Rate 78 85 74 Respiratory 20 20 Rate Blood Pressure 124/66 136/69 O2 Sat by Pulse 95 97 Oximetry 06/13/20 06/13/20 07:59 09:41 Temperature 97.7 F Pulse Rate 80 80 Respiratory 18 Rate Blood Pressure 136/64 O2 Sat by Pulse 97 Oximetry General appearance: Present: mild distress - Neck Neck: supple - Respiratory Respiratory effort: normal Extremities: no ischemia - Gastrointestinal General gastrointestinal: Present: soft, tender - Labs CBC & Chem 7: 06/13/20 06:29 06/13/20 06:29 Labs: Abnormal lab results 06/13/20 06/13/20 Range/Units 06:29 06:29 Plt Count 64 L (140-440) K/mm3 Lymph % (Auto) 5.8 L (13.4-35.0) % Ida % (Auto) 7.5 H (0.0-7.3) % Lymph # (Auto) 0.6 L (1.2-5.4) K/mm3 Seg Neutrophils % 85.9 H (40.0-70.0) % Seg Neutrophils # 9.5 H (1.8-7.7) K/mm3 Sodium 134 L (137-145) mmol/L Carbon Dioxide 16 L (22-30) mmol/L BUN 56 H (7-17) mg/dL Creatinine 2.6 H (0.6-1.2) mg/dL Glucose 106 H (65-100) mg/dL Calcium 8.1 L (8.4-10.2) mg/dL Total Protein 5.6 L D (6.3-8.2) g/dL Albumin 2.3 L (3.9-5) g/dL Medications & Allergies - Medications Allergies/Adverse Reactions: Allergies No Known Allergies Allergy (Unverified 06/11/20 10:48) Home Medications: Home Medications Medication Instructions Recorded Confirmed Last Taken Type Fenofibrate 160 mg PO DAILY 06/13/20 06/13/20 Unknown History Levothyroxine [Synthroid] 75 mcg PO QAM 06/13/20 06/13/20 Unknown History Triamter/Hctz 37.5-25 mg 1 tab PO DAILY 06/13/20 06/13/20 Unknown History metFORMIN XR [Glucophage XR] 500 mg PO QDAY 06/13/20 06/13/20 Unknown History Active Medications: Generic Name Dose Route Start Last Admin Trade Name Freq PRN Reason Stop Dose Admin Acetaminophen 650 mg 06/11/20 22:25 Tylenol PO Q4H PRN Pain MILD(1-3)/Fever >100.5/CHU Famotidine 20 mg 06/12/20 10:00 06/12/20 17:56 Pepcid IV 20 mg DAILY KENNETH Administration Heparin Sodium (Porcine) 5,000 unit 06/11/20 22:30 06/13/20 06:53 Heparin SUB-Q 5,000 unit Q8HR KENNETH Administration Hydromorphone HCl 0.5 mg 06/11/20 22:25 Dilaudid IV Q3H PRN Pain , Severe (7-10) Sodium Chloride 1,000 mls @ 125 mls/hr 06/11/20 22:30 06/12/20 17:55 Nacl 0.9% 1000 Ml IV 125 mls/hr DIRECT KENNETH Administration Ceftriaxone Sodium 1 gm in 50 mls @ 100 mls/hr 06/12/20 10:00 06/12/20 17:54 Rocephin/Ns 1 Gm/50 Ml IV 100 mls/hr Q24HR KENNETH Administration Protocol Morphine Sulfate 1 mg 06/12/20 18:59 Morphine IV Q4H PRN Pain, Moderate (4-6) Ondansetron HCl 4 mg 06/11/20 22:25 Zofran IV Q8H PRN Nausea And Vomiting Oxycodone/Acetaminophen 1 tab 06/11/20 22:25 Percocet 5/325 PO Q6H PRN Pain, Moderate (4-6) Sodium Chloride 10 ml 06/12/20 10:00 06/12/20 17:56 Sodium Chloride Flush Syringe 10 Ml IV 10 ml BID KENNETH Administration Sodium Chloride 10 ml 06/11/20 22:25 Sodium Chloride Flush Syringe 10 Ml IV PRN PRN LINE FLUSH HEART Score - HEART Score Age: > 65 Troponin: Troponin T < 0.010 ng/mL (0.00-0.029) 06/11/20 11:09 Troponin: 1-3x normal limit - Critical Actions Critical Actions: 4-6 pts:12-16.6% risk of adverse cardiac event. Should be admitted
--- NOTE | 2020-06-13 14:54 | Anesthesia Consultation ---
Anesthesia Consult and Med Hx Date of service: 06/13/20 - Airway Anesthetic Teeth Evaluation: Bridges (upper front), Partials (upper) ROM Head & Neck: Adequate (some limitating following neck spine surgery) Mental/Hyoid Distance: Adequate Mallampati Class: Class III Intubation Access Assessment: Possibly Difficult - Pre-Operative Health Status ASA Pre-Surgery Classification: ASA3 Proposed Anesthetic Plan: General - Cardiovascular System Hx Hypertension: Yes - Central Nervous System Hx Back Pain: Yes (s/p lower back and neck spine surgery) - Endocrine Hx Renal Disease: Yes (stone, hydronephrosis) Hx Non-Insulin Dependent Diabetes: Yes Hx Hypothyroidism: Yes - Additional Comments Anesthesia Medical History Comments: pt presents with low platelets - 64,000
--- NOTE | 2020-06-13 15:54 | Consultation ---
HISTORY OF PRESENT ILLNESS: The patient is a woman who presented with left flank pain, nausea and vomiting. She has a left hydronephrosis with a distal ureteral stone measuring about 6 mm. She has had intermittent nausea and vomiting. Urological consultation was obtained. No previous history known. PAST MEDICAL HISTORY: Negative for issues. PAST SURGICAL HISTORY: No history of stone. FAMILY HISTORY: Noncontributory. REVIEW OF SYSTEMS: Mild nausea. PHYSICAL EXAMINATION: GENERAL: She is awake. She is in really in no distress to mild discomfort. HEENT: Normocephalic, nontraumatic. ABDOMEN: Soft, nondistended, mild left flank pain. IMPRESSION: Left distal ureteral stone for cystoscopy. She was admitted by the hospitalist couple of days ago and she has not been n.p.o. We will make her n.p.o. I will do this tomorrow. I explained it to her. I obtained the consent. JOB# [id number] [facility]
[2020-06-14] MEDS ORDERED: IOHEXOL 300 MG/ML 50ML IV ONE
[2020-06-14] MEDS ORDERED: WATER FOR IRRIG STERILE 2000 ML IR ONE
[2020-06-14] MEDS: SODIUM CHLORIDE 0.9% 1000 ML 1,000 ML IV SCH ×3 (05:25→20:17)
[2020-06-14] MEDS: HEPARIN 5,000 UNIT/1 ML VIAL SUB-Q SCH ×3 (05:26→21:36)
[2020-06-14 05:48] LABS: Hematocrit 35.7 % (30.3-42.9); Mean Corpuscular Volume 87 fl (79-97); Red Blood Count 4.09 M/mm3 (3.65-5.03); Red Cell Distribution Width 13.6 % (13.2-15.2)
[2020-06-14 05:54] LABS: Mean Corpuscular HGB Conc 34 % (30-34); Platelet Count 96 K/mm3 (140-440)
[2020-06-14 05:59] LABS: Calcium 8.5 mg/dL (8.4-10.2)
[2020-06-14] MEDS ORDERED: MIDAZOLAM 2 MG/2 ML INJ IV NR (06:00)
[2020-06-14] MEDS: FAMOTIDINE 20 MG/2 ML INJ IV SCH (09:22)
[2020-06-14] MEDS: cefTRIAXone/NS 1 GM/50 ML 1 GM/50 ML BAG IV SCH (09:22)
[2020-06-14] MEDS ORDERED: SODIUM CHLORIDE 0.9% 1000 ML 1,000 ML ONE (11:35)
[2020-06-14] MEDS ORDERED: propofoL 200 MG/20 ML VIAL IV ONE (14:10)
[2020-06-14] MEDS ORDERED: HYDROmorphone 1 MG/1 ML INJ ONE (14:40)
[2020-06-14] MEDS ORDERED: SUCCINYLCHOLINE CHLORIDE 200 MG/10 ML INJ MDV ONE (14:40)
[2020-06-14] MEDS ORDERED: ONDANSETRON 4 MG/2 ML INJ ONE (14:40)
--- NOTE | 2020-06-14 15:06 | Post Operative Note ---
Date of procedure: 06/14/20 Pre-op diagnosis: stone Post-op diagnosis: same Findings: mild hydro pus Procedure: cysto rpg stent Anesthesia: GETA Surgeon: JAVED SORENSEN Estimated blood loss: none Pathology: list (urinr) Condition: stable Disposition: PACU
--- NOTE | 2020-06-14 15:08 | Operative Report ---
PREOPERATIVE DIAGNOSIS: Left distal ureteral stone. PREOPERATIVE DIAGNOSES: Left distal ureteral stone with evidence of infection. PROCEDURE: Cystoscopy, minimal left RPG, left ureteral catheter and double-J stent. SURGEON: Dr. Yu. ANESTHESIA: General. FINDINGS: This is a woman who presented with severe pain. She was admitted to medical service, found to have a distal stone. She now presents for treatment. DESCRIPTION OF PROCEDURE: The patient was brought to the operating table and placed on the operating table. Following induction of anesthesia, placed in lithotomy position, prepped and draped in usual sterile fashion. When I came in the room, she was bleeding from her lip. I checked with anesthesia whether we should proceed; they said they had the airway already secured and we could go forward. When we looked in the bladder, there was purulent material with droplets of pus at the base of the bladder and some coming from the left ureter. We placed an open ended up in the kidney and got some urine. We initially did a retrograde, which looked like the stone was distal, but we did not do ureteroscopy. A double J coiled in the kidney and we left the Hernandez, brought to recovery room. She will need a staged procedure after an infection is gone. JOB# [id number] [facility]
--- NOTE | 2020-06-14 15:14 | Fluoroscopy Report ---
Fluoroscopy retrograde urography HISTORY: Left ureteral stone COMPARISON: CT abdomen pelvis dated 06/11/2020 FINDINGS: 97 seconds of fluoroscopy time was provided by radiology during retrograde urography by uro logy. 4 fluoroscopic images of the abdomen are presented demonstrating left ureteral stent placement. There is adequate drainage of the left collecting system on the final image. Please correlate with renan root procedural report as needed. Signer Name: Norman Olivia Jr, MD Signed: 06/14/2020 3:10 PM Workstation Name: [id number]
--- NOTE | 2020-06-14 15:15 | Progress Note ---
Assessment and Plan 1. Acute kidney injury: Vasomotor nephropathy in the setting of volume depletion. CT abdomen showed L ureteral stone with L hydroureteronephrosis. Urine studies ordered. Continue IV fluids. Monitor renal function. Creatinine level is improving. Avoid nephrotoxic agents. Meds dosage based on GFR. 2. FEN: Hyponatremia, 2/2 volume depletion, improving, monitor. Anion-gap Metabolic acidosis, monitor. Monitor lytes. 3. Sepsis: Etiology secondary to UTI +/-gastroenteritis. Follow-up blood and urine cultures. 4. Acute gastroenteritis: Continue symptomatic treatment. 5. Left ureteral stone with hydronephrosis: Cysto planned for 06/14. Followed by Urology. 6. UTI: Continue IV antibiotics and follow-up urine cultures. 7. DM type 2: Accuchecks. 8. Hypertension: Monitor BP and resume home meds as appropriate. Subjective: Patient was seen and examined at the bedside. - General Appearance General appearance: well-developed, well-nourished, appears stated age, no distress HEENT: ATNC, MOON, hearing intact, vision intact Neck: supple Respiratory: ctab Cardiology: regular, S1S2, no murmur Gastrointestinal: normoactive bowel sounds, no tenderness, not distended Integumentary: no obvious rash Neurologic: no asterixis, alert and oriented x3, able to move extremities Ext: no edema noted Psychiatric: cooperative Subjective Date of service: 06/14/20 Principal diagnosis: ureteral stone Objective - Vital Signs Vital signs: Vital Signs - 12hr 06/14/20 06/14/20 06/14/20 04:14 07:26 11:25 Temperature 98.0 F 97.8 F 97.9 F Pulse Rate 84 77 81 Respiratory 18 18 24 Rate Blood Pressure 161/83 145/77 160/77 O2 Sat by Pulse 95 97 99 Oximetry - Lab 06/14/20 05:14 06/15/20 04:35 Most recent lab results Calcium 8.5 mg/dL (8.4-10.2) 06/14/20 05:14 Phosphorus 3.50 mg/dL (2.5-4.5) 06/14/20 05:14 Magnesium 2.00 mg/dL (1.7-2.3) 06/14/20 05:14 Medications & Allergies - Medications Allergies/Adverse Reactions: Allergies No Known Allergies Allergy (Unverified 06/11/20 10:48) Home Medications: Home Medications Medication Instructions Recorded Confirmed Last Taken Type Fenofibrate 160 mg PO DAILY 06/13/20 06/13/20 Unknown History Levothyroxine [Synthroid] 75 mcg PO QAM 06/13/20 06/13/20 Unknown History Triamter/Hctz 37.5-25 mg 1 tab PO DAILY 06/13/20 06/13/20 Unknown History metFORMIN XR [Glucophage XR] 500 mg PO QDAY 06/13/20 06/13/20 Unknown History Active Medications: Generic Name Dose Route Start Last Admin Trade Name Freq PRN Reason Stop Dose Admin Acetaminophen 650 mg 06/11/20 22:25 Tylenol PO Q4H PRN Pain MILD(1-3)/Fever >100.5/CHU Famotidine 20 mg 06/12/20 10:00 06/14/20 09:22 Pepcid IV 20 mg DAILY KENNETH Administration Heparin Sodium (Porcine) 5,000 unit 06/11/20 22:30 06/14/20 05:26 Heparin SUB-Q 5,000 unit Q8HR KENNETH Administration Hydromorphone HCl 0.5 mg 06/11/20 22:25 Dilaudid IV Q3H PRN Pain , Severe (7-10) Sodium Chloride 1,000 mls @ 125 mls/hr 06/11/20 22:30 06/14/20 05:25 Nacl 0.9% 1000 Ml IV 125 mls/hr DIRECT KENNETH Administration Ceftriaxone Sodium 1 gm in 50 mls @ 100 mls/hr 06/12/20 10:00 06/14/20 09:22 Rocephin/Ns 1 Gm/50 Ml IV 100 mls/hr Q24HR KENNETH Administration Protocol Sodium Chloride 1,000 mls @ 100 mls/hr 06/14/20 11:30 06/14/20 11:35 Nacl 0.9% 1000 Ml IV 100 mls/hr DIRECT KENNETH Administration Morphine Sulfate 1 mg 06/12/20 18:59 Morphine IV Q4H PRN Pain, Moderate (4-6) Ondansetron HCl 4 mg 06/11/20 22:25 Zofran IV Q8H PRN Nausea And Vomiting Oxycodone/Acetaminophen 1 tab 06/11/20 22:25 Percocet 5/325 PO Q6H PRN Pain, Moderate (4-6) Sodium Chloride 10 ml 06/12/20 10:00 06/14/20 09:23 Sodium Chloride Flush Syringe 10 Ml IV 10 ml BID KENNETH Administration Sodium Chloride 10 ml 06/11/20 22:25 Sodium Chloride Flush Syringe 10 Ml IV PRN PRN LINE FLUSH
--- NOTE | 2020-06-14 15:30 | Post Anesthesia Evaluation ---
- Post Anesthesia Evaluation Patient Participated: Yes Airway Patent: Yes Stable Respiratory Function: Yes Nausea/Vomiting: No Temp > 96.8F: Yes Pain Manageable: Yes Adequeate Hydration: Yes Anesthesia Complications: No
--- NOTE | 2020-06-14 15:30 | Anesthesia Day of Surgery ---
Anesthesia Day of Surgery - Day of Surgery Patient Examined: Yes Patient H&P Reviewed: Yes Patient is NPO: Yes
--- NOTE | 2020-06-14 17:20 | Progress Note ---
Assessment and Plan - Patient Problems (1) Acute kidney injury Current Visit: Yes Status: Acute Plan to address problem: Patient has been volume repleted ATN IV fluids Possible underlying chronic kidney disease Nephrology consult appreciated Creatinine is improved from 71/3.7 to 51/2.5 (2) Acute gastroenteritis Current Visit: Yes Status: Acute Plan to address problem: Symptomatic treatment IV fluids (3) Dehydration Current Visit: Yes Status: Acute Plan to address problem: IV fluids for now (4) Left ureteral stone Current Visit: Yes Status: Acute Plan to address problem: Left ureteral stone with moderate hydronephrosis Had urology consult requested (5) Hypertension Current Visit: Yes Status: Chronic Qualifiers: Hypertension type: essential hypertension Qualified Code(s): I10 - Essential (primary) hypertension Plan to address problem: Continue antihypertensives and adjust medications (6) Renal colic Current Visit: Yes Status: Acute Plan to address problem: Secondary to ureteral stone IV Toradol and IV Dilaudid as needed (7) T2DM (type 2 diabetes mellitus) Current Visit: Yes Status: Chronic Qualifiers: Diabetes mellitus alf insulin use: 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 Patient continues to have nausea vomiting and diarrhea. Demerol vomiting about 4-6 times a day and diarrhea 3-4 times a day. No exposure to coronavirus. No syncope no seizures. No chest pain. Day #4 06/14/2020 patient doing better Less pain and no vomiting Objective - Constitutional Vitals: Vital Signs - 12hr 06/14/20 06/14/20 06/14/20 07:26 11:25 15:00 Temperature 97.8 F 97.9 F 97.1 F L Pulse Rate 77 81 97 H Respiratory 18 24 14 Rate Blood Pressure 145/77 160/77 134/65 O2 Sat by Pulse 97 99 96 Oximetry 06/14/20 06/14/20 06/14/20 15:05 15:10 15:15 Temperature Pulse Rate 78 78 76 Respiratory 14 14 14 Rate Blood Pressure 144/66 136/69 139/66 O2 Sat by Pulse 97 97 97 Oximetry 06/14/20 06/14/20 06/14/20 15:30 15:45 16:00 Temperature Pulse Rate 75 78 74 Respiratory 16 16 16 Rate Blood Pressure 138/63 131/67 132/69 O2 Sat by Pulse 96 97 96 Oximetry 06/14/20 06/14/20 16:15 16:41 Temperature 97.2 F L Pulse Rate 75 73 Respiratory 16 Rate Blood Pressure 130/67 130/57 O2 Sat by Pulse 97 97 Oximetry General appearance: Present: no acute distress, well-nourished - EENT Eyes: PERRL, EOM intact ENT: hearing intact, clear oral mucosa Ears: bilateral: normal - Neck Neck: supple, normal ROM - Respiratory Respiratory effort: normal Respiratory: bilateral: CTA - Breasts Breasts: normal - Cardiovascular Heart rate: 78 Rhythm: regular Heart Sounds: Present: S1 & S2. Absent: gallop, rub Extremities: pulses intact, No edema, normal color, Full ROM - Gastrointestinal General gastrointestinal: Present: soft, non-tender, non-distended, normal bowel sounds - Genitourinary Female genitourinary: normal - Integumentary Integumentary: clear, warm, dry - Musculoskeletal Musculoskeletal: 1, strength equal bilaterally - Neurologic Neurologic: moves all extremities - Psychiatric Psychiatric: memory intact, appropriate mood/affect, intact judgment & insight - Labs CBC & Chem 7: 06/16/20 06:05 06/17/20 06:00 Labs: Abnormal lab results 06/14/20 06/14/20 06/14/20 Range/Units 05:14 05:14 07:40 WBC 13.3 H (4.5-11.0) K/mm3 Plt Count 96 L (140-440) K/mm3 Sodium 135 L (137-145) mmol/L Carbon Dioxide 16 L (22-30) mmol/L BUN 51 H (7-17) mg/dL Creatinine 2.5 H (0.6-1.2) mg/dL Glucose 118 H (65-100) mg/dL POC Glucose 110 H (70-105) mg/dL HEART Score - HEART Score Age: > 65 Troponin: Troponin T < 0.010 ng/mL (0.00-0.029) 06/11/20 11:09 Troponin: 1-3x normal limit - Critical Actions Critical Actions: 4-6 pts:12-16.6% risk of adverse cardiac event. Should be admitted
[2020-06-15 05:40] LABS: Calcium 7.7 mg/dL (8.4-10.2)
[2020-06-15] MEDS: HEPARIN 5,000 UNIT/1 ML VIAL SUB-Q SCH ×3 (05:55→21:13)
[2020-06-15] MEDS: SODIUM CHLORIDE 0.9% 1000 ML 1,000 ML IV SCH ×2 (05:55→19:17)
[2020-06-15] MEDS: FAMOTIDINE 20 MG/2 ML INJ IV SCH (10:03)
[2020-06-15] MEDS: cefTRIAXone/NS 1 GM/50 ML 1 GM/50 ML BAG IV SCH (10:03)
--- NOTE | 2020-06-15 12:38 | Progress Note ---
Assessment and Plan 1. Acute kidney injury: Vasomotor nephropathy in the setting of volume depletion. CT abdomen showed L ureteral stone with L hydroureteronephrosis. Urine studies ordered. Continue IV fluids. Monitor renal function. Creatinine level is improving. Avoid nephrotoxic agents. Meds dosage based on GFR. 2. FEN: Hyponatremia, 2/2 volume depletion, improving, monitor. Anion-gap Metabolic acidosis, monitor. Monitor lytes. 3. Sepsis: Etiology secondary to UTI +/-gastroenteritis. 4. Acute gastroenteritis: Continue symptomatic treatment. 5. Left ureteral stone with hydronephrosis: S/p Cysto and stent 06/14. Followed by Urology. 6. UTI: Continue IV antibiotics. 7. DM type 2: Accuchecks. 8. Hypertension: Monitor BP and resume home meds as appropriate. Recommended follow up in 1-2 weeks. Subjective: Patient was seen and examined at the bedside. - General Appearance General appearance: well-developed, well-nourished, appears stated age, no distress HEENT: ATNC, MOON, hearing intact, vision intact Neck: supple Respiratory: ctab Cardiology: regular, S1S2, no murmur Gastrointestinal: normoactive bowel sounds, no tenderness, not distended Integumentary: no obvious rash Neurologic: no asterixis, alert and oriented x3, able to move extremities Ext: no edema noted Psychiatric: cooperative Subjective Date of service: 06/15/20 Principal diagnosis: ureteral stone Objective - Vital Signs Vital signs: Vital Signs - 12hr 06/15/20 06/15/20 06/15/20 01:00 03:24 07:28 Temperature 98.3 F 98.2 F Pulse Rate 66 77 74 Respiratory 16 20 Rate Blood Pressure 161/73 151/73 O2 Sat by Pulse 98 97 Oximetry 06/15/20 12:02 Temperature 97.6 F Pulse Rate 79 Respiratory 20 Rate Blood Pressure 159/81 O2 Sat by Pulse 97 Oximetry - Lab 06/14/20 05:14 06/15/20 04:35 Most recent lab results Calcium 7.7 mg/dL (8.4-10.2) L 06/15/20 04:35 Phosphorus 3.50 mg/dL (2.5-4.5) 06/14/20 05:14 Magnesium 2.00 mg/dL (1.7-2.3) 06/14/20 05:14 Medications & Allergies - Medications Allergies/Adverse Reactions: Allergies No Known Allergies Allergy (Unverified 06/11/20 10:48) Home Medications: Home Medications Medication Instructions Recorded Confirmed Last Taken Type Fenofibrate 160 mg PO DAILY 06/13/20 06/13/20 Unknown History Levothyroxine [Synthroid] 75 mcg PO QAM 06/13/20 06/13/20 Unknown History Triamter/Hctz 37.5-25 mg 1 tab PO DAILY 06/13/20 06/13/20 Unknown History metFORMIN XR [Glucophage XR] 500 mg PO QDAY 06/13/20 06/13/20 Unknown History Active Medications: Generic Name Dose Route Start Last Admin Trade Name Freq PRN Reason Stop Dose Admin Acetaminophen 650 mg 06/11/20 22:25 Tylenol PO Q4H PRN Pain MILD(1-3)/Fever >100.5/CHU Famotidine 20 mg 06/12/20 10:00 06/15/20 10:03 Pepcid IV 20 mg DAILY KENNETH Administration Heparin Sodium (Porcine) 5,000 unit 06/11/20 22:30 06/15/20 05:55 Heparin SUB-Q 5,000 unit Q8HR KENNETH Administration Hydromorphone HCl 0.5 mg 06/11/20 22:25 Dilaudid IV Q3H PRN Pain , Severe (7-10) Sodium Chloride 1,000 mls @ 125 mls/hr 06/11/20 22:30 06/15/20 05:55 Nacl 0.9% 1000 Ml IV 125 mls/hr DIRECT KENNETH Administration Ceftriaxone Sodium 1 gm in 50 mls @ 100 mls/hr 06/12/20 10:00 06/15/20 10:03 Rocephin/Ns 1 Gm/50 Ml IV 06/18/20 10:29 100 mls/hr Q24HR KENNETH Administration Protocol Morphine Sulfate 1 mg 06/12/20 18:59 Morphine IV Q4H PRN Pain, Moderate (4-6) Ondansetron HCl 4 mg 06/11/20 22:25 06/14/20 20:13 Zofran IV 4 mg Q8H PRN Administration Nausea And Vomiting Oxycodone/Acetaminophen 1 tab 06/11/20 22:25 Percocet 5/325 PO Q6H PRN Pain, Moderate (4-6) Sodium Chloride 10 ml 06/12/20 10:00 06/15/20 10:04 Sodium Chloride Flush Syringe 10 Ml IV 10 ml BID KENNETH Administration Sodium Chloride 10 ml 06/11/20 22:25 Sodium Chloride Flush Syringe 10 Ml IV PRN PRN LINE FLUSH
--- NOTE | 2020-06-15 18:51 | Progress Note ---
Assessment and Plan - Patient Problems (1) Acute kidney injury Current Visit: Yes Status: Acute Plan to address problem: Patient has been volume repleted ATN IV fluids Possible underlying chronic kidney disease Nephrology consult appreciated BUN/creatinine is improved from 71/3.7 to 51/2.5 to 41/2.0 (2) Acute gastroenteritis Current Visit: Yes Status: Acute Plan to address problem: Symptomatic treatment IV fluids (3) Dehydration Current Visit: Yes Status: Acute Plan to address problem: IV fluids for now (4) Left ureteral stone Current Visit: Yes Status: Acute Plan to address problem: Left ureteral stone with moderate hydronephrosis Had urology consult requested (5) Hypertension Current Visit: Yes Status: Chronic Qualifiers: Hypertension type: essential hypertension Qualified Code(s): I10 - Essential (primary) hypertension Plan to address problem: Continue antihypertensives and adjust medications (6) Renal colic Current Visit: Yes Status: Acute Plan to address problem: Secondary to ureteral stone IV Toradol and IV Dilaudid as needed (7) T2DM (type 2 diabetes mellitus) Current Visit: Yes Status: Chronic Qualifiers: Diabetes mellitus residential insulin use: unspecified 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 Patient continues to have nausea vomiting and diarrhea. Demerol v omiting about 4-6 times a day and diarrhea 3-4 times a day. No exposure to coronavirus. No syncope no seizures. No chest pain. Day #4 06/14/2020 patient doing better Less pain and no vomiting Day #5 06/15/2020 Left flank pain better Vomiting better Objective - Constitutional Vitals: Vital Signs - 12hr 06/15/20 06/15/20 06/15/20 07:28 12:02 15:39 Temperature 98.2 F 97.6 F 98.0 F Pulse Rate 74 79 81 Respiratory 20 20 20 Rate Blood Pressure 151/73 159/81 157/68 O2 Sat by Pulse 97 97 98 Oximetry General appearance: Present: no acute distress, well-nourished - EENT Eyes: PERRL, EOM intact ENT: hearing intact, clear oral mucosa Ears: bilateral: normal - Neck Neck: supple, normal ROM - Respiratory Respiratory effort: normal Respiratory: bilateral: CTA - Breasts Breasts: normal - Cardiovascular Heart rate: 78 Rhythm: regular Heart Sounds: Present: S1 & S2. Absent: gallop, rub Extremities: pulses intact, No edema, normal color, Full ROM - Gastrointestinal General gastrointestinal: Present: soft, non-tender, non-distended, normal bowel sounds - Genitourinary Female genitourinary: normal - Integumentary Integumentary: clear, warm, dry - Musculoskeletal Musculoskeletal: 1, strength equal bilaterally - Neurologic Neurologic: moves all extremities - Psychiatric Psychiatric: memory intact, appropriate mood/affect, intact judgment & insight - Labs CBC & Chem 7: 06/16/20 06:05 06/17/20 06:00 Labs: Abnormal lab results 06/15/20 06/15/20 06/15/20 Range/Units 04:35 11:31 16:15 Sodium 136 L (137-145) mmol/L Carbon Dioxide 16 L (22-30) mmol/L BUN 41 H (7-17) mg/dL Creatinine 2.0 H (0.6-1.2) mg/dL Glucose 123 H (65-100) mg/dL POC Glucose 130 H 149 H (70-105) mg/dL Calcium 7.7 L (8.4-10.2) mg/dL HEART Score - HEART Score Age: > 65 Troponin: Troponin T < 0.010 ng/mL (0.00-0.029) 06/11/20 11:09 Troponin: 1-3x normal limit - Critical Actions Critical Actions: 4-6 pts:12-16.6% risk of adverse cardiac event. Should be admitted
[2020-06-15] MEDS ORDERED: SODIUM BICARBONATE 650 MG TAB PO ONE (21:00)
[2020-06-16] MEDS: SODIUM CHLORIDE 0.9% 1000 ML 1,000 ML IV SCH ×2 (01:32→16:36)
[2020-06-16 06:24] LABS: Basophils # (Auto) 0.1 K/mm3 (0.0-0.1); Basophils % (Auto) 0.5 % (0.0-1.8); Eosinophils # (Auto) 0.1 K/mm3 (0.0-0.4); Eosinophils % (Auto) 1.3 % (0.0-4.3); Hematocrit 35.5 % (30.3-42.9); Hemoglobin 11.8 gm/dl (10.1-14.3); Lymphocytes # (Auto) 0.8 K/mm3 (1.2-5.4); Lymphocytes % (Auto) 7.6 % (13.4-35.0); Mean Corpuscular HGB Conc 33 % (30-34); Mean Corpuscular Volume 90 fl (79-97); Monocytes # (Auto) 0.8 K/mm3 (0.0-0.8); Monocytes % (Auto) 7.5 % (0.0-7.3); Platelet Count 142 K/mm3 (140-440); Red Blood Count 3.97 M/mm3 (3.65-5.03); Red Cell Distribution Width 13.8 % (13.2-15.2)
[2020-06-16 06:42] LABS: Albumin 2.3 g/dL (3.9-5); Calcium 7.3 mg/dL (8.4-10.2)
[2020-06-16] MEDS: HEPARIN 5,000 UNIT/1 ML VIAL SUB-Q SCH ×3 (08:21→21:26)
[2020-06-16] MEDS: FAMOTIDINE 20 MG/2 ML INJ IV SCH (10:00)
[2020-06-16] MEDS: cefTRIAXone/NS 1 GM/50 ML 1 GM/50 ML BAG IV SCH (10:00)
--- NOTE | 2020-06-16 10:30 | Progress Note ---
Assessment and Plan 1. Acute kidney injury: Vasomotor nephropathy in the setting of volume depletion. CT abdomen showed L ureteral stone with L hydroureteronephrosis. Urine studies ordered. Continue IV fluids. Monitor renal function. Creatinine level is improving. Avoid nephrotoxic agents. Meds dosage based on GFR. 2. FEN: Hyponatremia, 2/2 volume depletion, monitor. Anion-gap Metabolic acidosis, improving, monitor. Monitor lytes. 3. Sepsis: Etiology secondary to UTI +/-gastroenteritis. 4. Acute gastroenteritis: Continue symptomatic treatment. 5. Left ureteral stone with hydronephrosis: S/p Cysto and stent 06/14. Followed by Urology. 6. UTI: Continue IV antibiotics. 7. DM type 2: Accuchecks. 8. Hypertension: Monitor BP and resume home meds as appropriate. Recommended follow up in 1-2 weeks. Subjective: Patient was seen and examined at the bedside. Doing better. General Appearance: General appearance: well-developed, well-nourished, appears stated age, no distress HEENT: ATNC, MOON, hearing intact, vision intact Neck: supple Respiratory: ctab Cardiology: regular, S1S2, no murmur Gastrointestinal: normoactive bowel sounds, no tenderness, not distended Integumentary: no obvious rash Neurologic: no asterixis, alert and oriented x3, able to move extremities Ext: no edema noted Psychiatric: cooperative Subjective Date of service: 06/16/20 Principal diagnosis: ureteral stone Objective - Vital Signs Vital signs: Vital Signs - 12hr 06/15/20 06/16/20 06/16/20 23:33 00:45 04:42 Temperature 98.9 F 97.7 F Pulse Rate 84 78 76 Respiratory 18 18 Rate Blood Pressure 148/75 174/77 O2 Sat by Pulse 95 97 Oximetry 06/16/20 07:40 Temperature 98.1 F Pulse Rate 73 Respiratory 18 Rate Blood Pressure 149/77 O2 Sat by Pulse 97 Oximetry - Lab 06/16/20 06:05 06/16/20 06:05 Most recent lab results Calcium 7.3 mg/dL (8.4-10.2) L 06/16/20 06:05 Phosphorus 3.50 mg/dL (2.5-4.5) 06/14/20 05:14 Magnesium 2.00 mg/dL (1.7-2.3) 06/14/20 05:14 Medications & Allergies - Medications Allergies/Adverse Reactions: Allergies No Known Allergies Allergy (Unverified 06/11/20 10:48) Home Medications: Home Medications Medication Instructions Recorded Confirmed Last Taken Type Fenofibrate 160 mg PO DAILY 06/13/20 06/13/20 Unknown History Levothyroxine [Synthroid] 75 mcg PO QAM 06/13/20 06/13/20 Unknown History Triamter/Hctz 37.5-25 mg 1 tab PO DAILY 06/13/20 06/13/20 Unknown History metFORMIN XR [Glucophage XR] 500 mg PO QDAY 06/13/20 06/13/20 Unknown History Active Medications: Generic Name Dose Route Start Last Admin Trade Name Freq PRN Reason Stop Dose Admin Acetaminophen 650 mg 06/11/20 22:25 Tylenol PO Q4H PRN Pain MILD(1-3)/Fever >100.5/CHU Famotidine 20 mg 06/17/20 10:00 Pepcid PO DAILY KENNETH Heparin Sodium (Porcine) 5,000 unit 06/11/20 22:30 06/16/20 08:21 Heparin SUB-Q 5,000 unit Q8HR KENNETH Administration Hydromorphone HCl 0.5 mg 06/11/20 22:25 Dilaudid IV Q3H PRN Pain , Severe (7-10) Sodium Chloride 1,000 mls @ 50 mls/hr 06/11/20 22:30 06/16/20 01:32 Nacl 0.9% 1000 Ml IV 125 mls/hr DIRECT KENNETH Administration Ceftriaxone Sodium 1 gm in 50 mls @ 100 mls/hr 06/12/20 10:00 06/16/20 10:00 Rocephin/Ns 1 Gm/50 Ml IV 06/18/20 10:29 100 mls/hr Q24HR KENNETH Administration Protocol Morphine Sulfate 1 mg 06/12/20 18:59 Morphine IV Q4H PRN Pain, Moderate (4-6) Ondansetron HCl 4 mg 06/11/20 22:25 06/14/20 20:13 Zofran IV 4 mg Q8H PRN Administration Nausea And Vomiting Oxycodone/Acetaminophen 1 tab 06/11/20 22:25 Percocet 5/325 PO Q6H PRN Pain, Moderate (4-6) Sodium Chloride 10 ml 06/12/20 10:00 06/16/20 10:00 Sodium Chloride Flush Syringe 10 Ml IV 10 ml BID KENNETH Administration Sodium Chloride 10 ml 06/11/20 22:25 Sodium Chloride Flush Syringe 10 Ml IV PRN PRN LINE FLUSH
--- NOTE | 2020-06-16 16:12 | Progress Note ---
Assessment and Plan - Patient Problems (1) Acute kidney injury Current Visit: Yes Status: Acute Plan to address problem: Patient has been volume repleted ATN IV fluids Possible underlying chronic kidney disease Nephrology consult appreciated Creatinine is improved to 33/1.8 from 71/3.7 at the time of admission Patient had RPG stent (2) Acute gastroenteritis Current Visit: Yes Status: Acute Plan to address problem: Symptomatic treatment IV fluids (3) Dehydration Current Visit: Yes Status: Acute Plan to address problem: IV fluids for now (4) Left ureteral stone Current Visit: Yes Status: Acute Plan to address problem: Left ureteral stone with moderate hydronephrosis Had urology consult requested (5) Hypertension Current Visit: Yes Status: Chronic Qualifiers: Hypertension type: essential hypertension Qualified Code(s): I10 - Ess ential (primary) hypertension Plan to address problem: Continue antihypertensives and adjust medications (6) Renal colic Current Visit: Yes Status: Acute Plan to address problem: Secondary to ureteral stone IV Toradol and IV Dilaudid as needed (7) T2DM (type 2 diabetes mellitus) Current Visit: Yes Status: Chronic Qualifiers: Diabetes mellitus director long term care insulin use: unspecified [facility] insulin use status Plan to address problem: Continue coverage (8) UTI (urinary tract infection) Current Visit: Yes Status: Acute Qualifiers: Urinary tract infection type: acute cystitis Plan to address problem: On IV Rocephin 1 g IV piggyback every 24 (9) DVT prophylaxis Current Visit: Yes Status: Acute Plan to address problem: On heparin and GI prophylaxis Subjective Date of service: 06/16/20 Principal diagnosis: ureteral stone Interval history: 79-year-old female with history of hypertension type 2 diabetes and hypothyroidism comes in for abdominal pain nausea vomiting and diarrhea 4 days duration. Patient continues to have nausea vomiting and diarrhea. Demerol vomiting about 4-6 times a day and diarrhea 3-4 times a day. No exposure to coronavirus. No syncope no seizures. No chest pain. Day #4 06/14/2020 patient doing better Less pain and no vomiting Day #5 06/15/2020 Left flank pain better Vomiting better Day #6 06/16/2020 Symptomatically better No fever Objective - Constitutional Vitals: Vital Signs - 12hr 06/16/20 06/16/20 04:42 07:40 Temperature 97.7 F 98.1 F Pulse Rate 76 73 Respiratory 18 18 Rate Blood Pressure 174/77 149/77 O2 Sat by Pulse 97 97 Oximetry General appearance: Present: no acute distress, well-nourished - EENT Eyes: PERRL, EOM intact ENT: hearing intact, clear oral mucosa Ears: bilateral: normal - Neck Neck: supple, normal ROM - Respiratory Respiratory effort: normal Respiratory: bilateral: CTA - Breasts Breasts: normal - Cardiovascular Heart rate: 78 Rhythm: regular Heart Sounds: Present: S1 & S2. Absent: gallop, rub Extremities: pulses intact, No edema, normal color, Full ROM - Gastrointestinal General gastrointestinal: Present: soft, non-tender, non-distended, normal bowel sounds - Genitourinary Female genitourinary: normal - Integumentary Integumentary: clear, warm, dry - Musculoskeletal Musculoskeletal: 1, strength equal bilaterally - Neurologic Neurologic: moves all extremities - Psychiatric Psychiatric: memory intact, appropriate mood/affect, intact judgment & insight - Labs CBC & Chem 7: 06/16/20 06:05 06/17/20 06:00 Labs: Abnormal lab results 06/16/20 06/16/20 Range/Units 06:05 06:05 Lymph % (Auto) 7.6 L (13.4-35.0) % [place] % (Auto) 7.5 H (0.0-7.3) % Lymph # (Auto) 0.8 L (1.2-5.4) K/mm3 Seg Neutrophils % 83.1 H (40.0-70.0) % Seg Neutrophils # 8.5 H (1.8-7.7) K/mm3 Sodium 134 L (137-145) mmol/L Carbon Dioxide 19 L (22-30) mmol/L BUN 33 H (7-17) mg/dL Creatinine 1.8 H (0.6-1.2) mg/dL Calcium 7.3 L (8.4-10.2) mg/dL Total Protein 5.1 L (6.3-8.2) g/dL Albumin 2.3 L (3.9-5) g/dL HEART Score - HEART Score Age: > 65 Troponin: Troponin T < 0.010 ng/mL (0.00-0.029) 06/11/20 11:09 Troponin: 1-3x normal limit - Critical Actions Critical Actions: 4-6 pts:12-16.6% risk of adverse cardiac event. Should be admitted
--- NOTE | 2020-06-16 18:21 | Cat Scan Report ---
CT abdomen pelvis wo con INDICATION / CLINICAL INFORMATION: L ureteral stone. TECHNIQUE: Axial CT imaging of abdomen and pelvis was obtained without contrast. Coronal and sagittal reformatte d imaging obtained and reviewed. All CT scans at this location are performed using CT dose reduction for ALARA by means of automated exposure control. COMPARISON: Prior CT, 06/11/2020 FINDINGS: CT abdomen without contrast demonstrates grossly normal appearance of the liver, spleen, pancreas, ri ght kidney, and adrenal glands. Since the last CT of 06/11/2020, a left ureteral stent has been placed and appears to be in grossly s atisfactory position. There is no significant hydronephrosis present. Previously noted distal left ur eteral calculus is visible in the left mid ureter at the level of S1, previously noted in the distal ureter near the ureteral orifice. CT pelvis without contrast shows catheter within the urinary bladder. GI tract is unremarkable. Appen [place] is visible in the right lower quadrant. Visualized lung bases demonstrate small bilateral pleural effusions, slightly greater on the left. Mi ld bibasilar atelectasis is noted. These findings within the lung bases are new compared to the prior study. There is mild generalized anasarca also noted. No acute significant osseous abnormality. IMPRESSION: 1. Since the most recent CT of 06/11/2020, a left ureteral stent has been placed. Previously noted le ft hydronephrosis has mostly resolved with only mild dilatation of the left intrarenal collecting sys tem now noted. 2. Previously noted distal left ureteral calculus is visible at the level of S1, mid ureter. 3. Interval development of small bilateral pleural effusions and bibasilar atelectasis. Signer Name: Adriana Cantu MD Signed: 06/16/2020 6:16 PM Workstation Name: [id number]
[2020-06-17] MEDS: HEPARIN 5,000 UNIT/1 ML VIAL SUB-Q SCH (05:13)
[2020-06-17 07:13] LABS: Calcium 7.9 mg/dL (8.4-10.2)
[2020-06-17] MEDS: cefTRIAXone/NS 1 GM/50 ML 1 GM/50 ML BAG IV SCH (09:39)
[2020-06-17] MEDS ORDERED: FAMOTIDINE 20 MG TAB PO SCH (10:00)
--- NOTE | 2020-06-17 10:26 | Progress Note ---
Assessment and Plan 1. Acute kidney injury: Vasomotor nephropathy in the setting of volume depletion. CT abdomen showed L ureteral stone with L hydroureteronephrosis. Continue IV fluids. Monitor renal function. Creatinine level is improving. Avoid nephrotoxic agents. Meds dosage based on GFR. 2. FEN: Hyponatremia, 2/2 volume depletion, monitor. Anion-gap Metabolic acidosis, improving, monitor. Monitor lytes. 3. Sepsis: Etiology secondary to UTI +/-gastroenteritis. 4. Acute gastroenteritis: Continue symptomatic treatment. 5. Left ureteral stone with hydronephrosis: S/p Cysto and stent 06/14. Followed by Urology. 6. UTI: On IV antibiotics. 7. DM type 2: Accuchecks. 8. Hypertension: Monitor BP and resume home meds as appropriate. Recommended follow up in 1-2 weeks. Subjective: Patient was not examined today. However the current and previous medical records are reviewed in detail as are laboratory and imaging data reviewed when appropriate. Medications being given are also reviewed. In addition the case has been discussed with the attending hospitalist and the nurse when needed.Newrenalrecommendations as above. General Appearance: Subjective Date of service: 06/17/20 Principal diagnosis: ureteral stone Objective - Vital Signs Vital signs: Vital Signs - 12hr 06/16/20 06/17/20 06/17/20 23:44 01:54 EST 03:53 Temperature 98.0 F 98.0 F Pulse Rate 86 80 78 Respiratory 18 18 Rate Blood Pressure 162/79 156/80 O2 Sat by Pulse 96 97 Oximetry 06/17/20 07:36 Temperature 97.9 F Pulse Rate 75 Respiratory 18 Rate Blood Pressure 164/78 O2 Sat by Pulse 94 Oximetry - Lab 06/16/20 06:05 06/17/20 06:00 Most recent lab results Calcium 7.9 mg/dL (8.4-10.2) L 06/17/20 06:00 Phosphorus 3.50 mg/dL (2.5-4.5) 06/14/20 05:14 Magnesium 2.00 mg/dL (1.7-2.3) 06/14/20 05:14 Medications & Allergies - Medications Allergies/Adverse Reactions: Allergies No Known Allergies Allergy (Unverified 06/11/20 10:48) Home Medications: Home Medications Medication Instructions Recorded Confirmed Last Taken Type Fenofibrate 160 mg PO DAILY #30 11/01/20 Unknown Rx Glimepiride [Amaryl] 1 mg PO QAM #30 tablet 06/17/20 Unknown Rx Levothyroxine [Synthroid] 75 mcg PO QAM #30 06/17/20 Unknown Rx Losartan [Cozaar] 50 mg PO QDAY #30 tablet 06/17/20 Unknown Rx predniSONE [Deltasone] 5 mg PO .TAPER 6 Days #21 tab 06/17/20 Unknown Rx Active Medications: Generic Name Dose Route Start Last Admin Trade Name Freq PRN Reason Stop Dose Admin Acetaminophen 650 mg 06/11/20 22:25 Tylenol PO Q4H PRN Pain MILD(1-3)/Fever >100.5/CHU Famotidine 20 mg 06/17/20 10:00 06/17/20 09:40 Pepcid PO 20 mg DAILY KENNETH Administration Heparin Sodium (Porcine) 5,000 unit 06/11/20 22:30 06/17/20 05:13 Heparin SUB-Q 5,000 unit Q8HR KENNETH Administration Hydromorphone HCl 0.5 mg 06/11/20 22:25 Dilaudid IV Q3H PRN Pain , Severe (7-10) Sodium Chloride 1,000 mls @ 50 mls/hr 06/11/20 22:30 06/16/20 16:36 Nacl 0.9% 1000 Ml IV 50 mls/hr DIRECT KENNETH Administration Ceftriaxone Sodium 1 gm in 50 mls @ 100 mls/hr 06/12/20 10:00 06/17/20 09:39 Rocephin/Ns 1 Gm/50 Ml IV 06/18/20 10:29 100 mls/hr Q24HR KENNETH Administration Protocol Morphine Sulfate 1 mg 06/12/20 18:59 Morphine IV Q4H PRN Pain, Moderate (4-6) Ondansetron HCl 4 mg 06/11/20 22:25 06/14/20 20:13 Zofran IV 4 mg Q8H PRN Administration Nausea And Vomiting Oxycodone/Acetaminophen 1 tab 06/11/20 22:25 Percocet 5/325 PO Q6H PRN Pain, Moderate (4-6) Sodium Chloride 10 ml 06/12/20 10:00 06/17/20 09:41 Sodium Chloride Flush Syringe 10 Ml IV 10 ml BID KENNETH Administration Sodium Chloride 10 ml 06/11/20 22:25 Sodium Chloride Flush Syringe 10 Ml IV PRN PRN LINE FLUSH
[2020-06-17 11:47] VITALS: BP 184/77
--- NOTE | 2020-06-17 13:27 | Discharge Summary ---
Providers - Providers Date of Admission: 06/14/20 12:50 Date of discharge: 06/17/20 Attending physician: ZAIN BOWDEN 06/11/20 22:25 Consult to Physician [CONS] Routine Comment: Consulting Provider: JUAN TAYLOR Physician Instructions: Reason For Exam: Left ureteral stone with hydronephrosis 06/13/20 02:33 Consult to Physician [CONS] Routine Comment: Consulting Provider: AURORA POWERS Physician Instructions: Reason For Exam: ADA/CKD Primary care physician: [employer] Hospitalization Condition: Stable Hospital course: (1) Acute kidney injury Current Visit: Yes Status: Acute Plan to address problem: Patient has been volume repleted ATN IV fluids Possible underlying chronic kidney disease Nephrology consult appreciated Creatinine is improved to 28/1.7 from 33/1.8 yesterday and from 71/3.7 at the time of admission Patient had RPG stent Patient to be discharged and take more fluids and follow-up with urology. (2) Acute gastroenteritis Current Visit: Yes Status: Acute Plan to address problem: Improved (3) Dehydration Current Visit: Yes Status: Acute Plan to address problem: Improved (4) Left ureteral stone Current Visit: Yes Status: Acute Plan to address problem: Patient had RPG Follow-up with urology as outpatient (5) Hypertension Current Visit: Yes Status: Chronic Qualifiers: Hypertension type: essential hypertension Qualified Code(s): I10 - Essential (primary) hypertension Plan to address problem: Continue antihypertensives and adjust medications (6) Renal colic Current Visit: Yes Status: Acute Plan to address problem: Secondary to ureteral stone IV Toradol and IV Dilaudid as needed (7) T2DM (type 2 diabetes mellitus) Current Visit: Yes Status: Chronic Qualifiers: Diabetes mellitus terminal carman insulin use: unspecified [facility] insulin use status Plan to address problem: Continue coverage (8) UTI (urinary tract infection) Current Visit: Yes Status: Acute Qualifiers: Urinary tract infection type: acute cystitis Plan to address problem: On IV Rocephin 1 g IV piggyback every 24 (9) DVT prophylaxis Current Visit: Yes Status: Acute Plan to address problem: On heparin and GI prophylaxis Subjective Date of service: 06/16/20 Principal diagnosis: ureteral stone Interval history: 79-year-old female with history of hypertension type 2 diabetes and hypothyroidism comes in for abdominal pain nausea vomiting and diarrhea 4 days duration. Patient continues to have nausea vomiting and diarrhea. Demerol vomiting about 4-6 times a day and diarrhea 3-4 times a day. No exposure to coronavirus. No syncope no seizures. No chest pain. Day #4 06/14/2020 patient doing better Less pain and no vomiting Day #5 06/15/2020 Left flank pain better Vomiting better Day #6 06/16/2020 Symptomatically better Day #7 06/17/2020 Patient much improved Asymptomatic Patient to follow-up with urology in 1 week No fever Disposition: DC-01 TO HOME OR SELFCARE - Discharge Diagnoses (1) Acute kidney injury Status: Acute (2) Acute gastroenteritis Status: Acute (3) Dehydration Status: Acute (4) Left ureteral stone Status: Acute (5) Hypertension Status: Chronic Qualifiers: Hypertension type: essential hypertension Qualified Code(s): I10 - Essential (primary) hypertension (6) Renal colic Status: Acute (7) T2DM (type 2 diabetes mellitus) Status: Chronic Qualifiers: Diabetes mellitus fci insulin use: unspecified fci insulin use status (8) UTI (urinary tract infection) Status: Acute Qualifiers: Urinary tract infection type: acute cystitis (9) DVT prophylaxis Status: Acute Core Measure Documentation - Palliative Care Palliative Care/ Comfort Measures: Not Applicable - Core Measures Any of the following diagnoses?: none Exam - Constitutional Vitals: Temp Pulse Resp BP Pulse Ox 98.4 F 82 18 184/77 98 06/17/20 10:58 06/17/20 10:58 06/17/20 10:58 06/17/20 10:58 06/17/20 10:58 General appearance: Present: no acute distress, well-nourished - EENT Eyes: Present: PERRL ENT: hearing intact, clear oral mucosa - Neck Neck: Present: supple, normal ROM - Respiratory Respiratory effort: normal Respiratory: bilateral: CTA - Cardiovascular Heart rate: 78 Rhythm: regular Heart Sounds: Present: S1 & S2. Absent: rub, click - Extremities Extremities: pulses symmetrical, No edema Peripheral Pulses: within normal limits - Abdominal General gastrointestinal: Present: soft, non-tender, non-distended, normal bowel sounds Female genitourinary: Present: normal - Integumentary Integumentary: Present: clear, warm, dry - Musculoskeletal Musculoskeletal: gait normal, strength equal bilaterally - Psychiatric Psychiatric: appropriate mood/affect, intact judgment & insight - Neurologic Neurologic: CNII-XII intact, moves all extremities Plan Activity: no restrictions Diet: regular Follow up with: PRIMARY CARE, [Primary Care Provider] - 7 Days JAVED SORENSEN MD [Staff Physician] - 7 Days
== END 2020-06-17 14:35 | disposition home or self-care (01) | DRG 853 ==
LOC: ED 10:37 → 3A 22:42 → 4A 22:58 → OBSVTOIN 06-14 12:50
PROVIDERS: ADMIT Internal Medicine; ATTEND Internal Medicine
PROC: 0T778DZ Dilation of Left Ureter with Intraluminal Device, Via Natural or Artificial Opening Endoscopic (ICD-10-PCS; principal; 2020-06-14)
PROC: BT1F1ZZ Fluoroscopy of Left Kidney, Ureter and Bladder using Low Osmolar Contrast (ICD-10-PCS; 2020-06-14)
DX: A41.9 Sepsis, unspecified organism (principal); N17.0 Acute kidney failure with tubular necrosis; E87.1 Hypo-osmolality and hyponatremia; N13.6 Pyonephrosis; E87.2 Acidosis; E86.0 Dehydration; E03.9 Hypothyroidism, unspecified; K52.9 Noninfective gastroenteritis and colitis, unspecified; E78.5 Hyperlipidemia, unspecified; Z79.84 Long term (current) use of oral hypoglycemic drugs; I12.9 Hypertensive chronic kidney disease with stage 1 through stage 4 chronic kidney disease, or unspecified chronic kidney disease; E11.22 Type 2 diabetes mellitus with diabetic chronic kidney disease; N18.9 Chronic kidney disease, unspecified
CPT/HCPCS: 36415; 74022; 74176; 74420; 80048; 80053; 81001; 82962; 83036; 83690; 83735; 84100; 84484; 85007; 85025; 85027; 85610; 85730; 93005; 96365; 96375; G0378; A4217; C1758; C1769; C2617; J0330; J0696; J1170; J1644; J2405; J2704; J3010; J7030; Q9967